=== PATIENT | female | born 1965 | race Caucasian/White ===

== ENCOUNTER 2017-06-05 01:08 | Inpatient (IN) | payer BC ==
[2017-06-05 01:44] LABS: Basophils % (A) 0 %; CH 31.7; CHCM 34.5; Eosinophils # (A) 0.1 k/uL (0-0.7); Eosinophils % (A) 2 %; HCT 43.6 % (34.0-46.0); HDW 2.67; HGB 15.2 gm/dL (11.4-16.0); Luc # (Auto) 0.17; Luc % (Auto) 2; Lymphocytes # (A) 2.1 k/uL (1.0-4.8); Lymphocytes % (A) 27 %; MCH 32.2 pg (25.0-35.0); MCV 92.2 fL (80.0-100.0); Mean Platelet Volume 7.4; Monocytes # (A) 0.3 k/uL (0-1.0); Monocytes % (A) 5 %; Neutrophils # (A) 4.8 k/uL (1.3-7.7); Neutrophils % (A) 64 %; RBC 4.73 m/uL (3.80-5.40); RDW 13.6 % (11.5-15.5); WBC 7.6 k/uL (3.8-10.6); WBC (Perox) 7.79
[2017-06-05 01:53] LABS: ALT 28 U/L (9-52); AST 18 U/L (14-36); Alkaline Phosphatase 115 U/L (38-126); Amylase 65 U/L (30-110); Anion Gap 12 mmol/L; Blood Urea Nitrogen 17 mg/dL (7-17); Calcium 9.9 mg/dL (8.4-10.2); Carbon Dioxide 22 mmol/L (22-30); Chloride 108 mmol/L (98-107); Glucose 105 mg/dL (74-99); Non-African American GFR(MDRD) >60 (>60 ml/min/1.73 sqM); Potassium 4.6 mmol/L (3.5-5.1); Sodium 142 mmol/L (137-145); Total Bilirubin 0.6 mg/dL (0.2-1.3); Total Protein 7.7 g/dL (6.3-8.2)
[2017-06-05] MEDS ORDERED: SODIUM CHLORIDE 0.9% 1,000 ML IV ONE (02:23)
[2017-06-05] MEDS ORDERED: HYDROmorphone 1 MG/ML 1 ML SYRINGE IVP STA (02:24)
--- NOTE | 2017-06-05 02:26 | ED ---
Abdominal Pain HPI - General Chief Complaint: Abdominal Pain Stated Complaint: back pain Time Seen by Provider: 06/05/17 01:25 Source: patient, family, RN notes reviewed Mode of arrival: ambulatory Limitations: no limitations - History of Present Illness Initial Comments: Patient is a 51-year-old female presents to the emergency room for evaluation of abdominal and back pain. Patient states pain began around 2 PM yesterday. Patient states pain has been worsening throughout the day. Patient states having right lower quadrant pain is radiating into her back. Patient states the pain is worse with movement. Patient states never had pain like this before. Patient states she has a history of section and ectopic . Patient denies nausea or vomiting. Patient denies fevers or chills. Patient states she is having 10 out of 10 pain. Patient denies trouble urinating. Patient denies history of kidney stones. Patient any pain or burning during urination. Patient denies constipation or diarrhea. - Related Data Home Medications Medication Instructions Recorded Confirmed No Known Home Medications [No 06/05/17 06/05/17 Known Home Medications] Allergies Allergy/AdvReac Type Severity Reaction Status Date / Time codeine Allergy Unknown Verified 06/05/17 01:14 Review of Systems ROS Statement: Those systems with pertinent positive or pertinent negative responses have been documented in the HPI. ROS Other: All systems not noted in ROS Statement are negative. Past Medical History Additional Past Medical History / Comment(s): Hep C History of Any Multi-Drug Resistant Organisms: None Reported Past Surgical History: Section, Tonsillectomy Additional Past Surgical History / Comment(s): ectopic preg, ENT Past Psychological History: No Psychological Hx Reported Smoking Status: Never smoker Past Alcohol Use History: None Reported Past Drug Use History: None Reported General Exam - General Exam Comments Initial Comments: laying in exam room, comfortable secondary to discomfort Limitations: no limitations General appearance: alert, in no apparent distress Head exam: Present: atraumatic, normocephalic, normal inspection ENT exam: Present: normal exam Neck exam: Present: normal inspection Respiratory exam: Present: normal lung sounds bilaterally. Absent: respiratory distress Cardiovascular Exam: Present: regular rate, normal rhythm, normal heart sounds GI/Abdominal exam: Present: soft, tenderness (RLQ), normal bowel sounds. Absent : distended, guarding, rebound, rigid Extremities exam: Present: normal inspection Back exam: Present: normal inspection Neurological exam: Present: alert, oriented X3, CN II-XII intact Psychiatric exam: Present: normal affect, normal mood Skin exam: Present: warm, dry, intact, normal color. Absent: rash Course Vital Signs 06/05/17 06/05/17 01:11 03:00 Temperature 97 F L 97.6 F Pulse Rate 100 82 Respiratory 22 18 Rate Blood Pressure 132/84 124/63 O2 Sat by Pulse 98 Oximetry Medical Decision Making - Medical Decision Making patient is a 51-year-old female presents to the emergency room for evaluation of abdominal pain. Labs show no concerning findings. Patient is afebrile. Abdomen/pelvis computed tomography scan positive for acute appendicitis. Case discussed with on-call surgeon, Dr. Raymundo. Patient will be started on Zosyn and scheduled for appendectomy later today. - Lab Data Result diagrams: 06/05/17 01:30 06/05/17 01:30 Lab Results 06/05/17 06/05/17 06/05/17 Range/Units 01:30 01:30 03:30 WBC 7.6 (3.8-10.6) k/uL RBC 4.73 (3.80-5.40) m/uL Hgb 15.2 (11.4-16.0) gm/dL Hct 43.6 (34.0-46.0) % MCV 92.2 (80.0-100.0) fL MCH 32.2 (25.0-35.0) pg MCHC 35.0 (31.0-37.0) g/dL RDW 13.6 (11.5-15.5) % Plt Count 259 (150-450) k/uL Neutrophils % 64 % Lymphocytes % 27 % Monocytes % 5 % Eosinophils % 2 % Basophils % 0 % Neutrophils # 4.8 (1.3-7.7) k/uL Lymphocytes # 2.1 (1.0-4.8) k/uL Monocytes # 0.3 (0-1.0) k/uL Eosinophils # 0.1 (0-0.7) k/uL Basophils # 0.0 (0-0.2) k/uL Sodium 142 (137-145) mmol/L Potassium 4.6 (3.5-5.1) mmol/L Chloride 108 H (98-107) mmol/L Carbon Dioxide 22 (22-30) mmol/L Anion Gap 12 mmol/L BUN 17 (7-17) mg/dL Creatinine 0.80 (0.52-1.04) mg/dL Est GFR (MDRD) Af Amer >60 (>60 ml/min/1.73 sqM) Est GFR (MDRD) Non-Af >60 (>60 ml/min/1.73 sqM) Glucose 105 H (74-99) mg/dL Calcium 9.9 (8.4-10.2) mg/dL Total Bilirubin 0.6 (0.2-1.3) mg/dL AST 18 (14-36) U/L ALT 28 (9-52) U/L Alkaline Phosphatase 115 (38-126) U/L Total Protein 7.7 (6.3-8.2) g/dL Albumin 4.5 (3.5-5.0) g/dL Amylase 65 (30-110) U/L Lipase 93 (23-300) U/L Urine Color Light Yellow Urine Appearance Clear (Clear) Urine pH 6.0 (5.0-8.0) Ur Specific [place] 1.012 (1.001-1.035) Urine Protein Negative (Negative) Urine Glucose (UA) Negative (Negative) Urine Ketones Negative (Negative) Urine Blood Negative (Negative) Urine Nitrite Negative (Negative) Urine Bilirubin Negative (Negative) Urine Urobilinogen <2.0 (<2.0) mg/dL Ur Leukocyte Esterase Negative (Negative) Ur Squamous Epith Cells <1 (0-4) /hpf Urine Mucus Rare H (None) /hpf - Radiology Data Radiology results: report reviewed, image reviewed Disposition Clinical Impression: Acute appendicitis Disposition: ADMITTED IP TO THIS [facility] Condition: Stable Referrals: Erin Grider MD [Primary Care Provider] - 1-2 days Decision Date: 06/05/17
[2017-06-05 04:01] LABS: Appearance,Urine Clear (Clear); Bilirubin,Urine Negative (Negative); Glucose,Urine (UA) Negative (Negative); Ketones,Urine Negative (Negative); Leukocyte Esterase,Urine Negative (Negative); Mucus,Urine Rare /hpf; Nitrite,Urine Negative (Negative); Particle Count 668; Protein,Urine Negative (Negative); Specific Gravity,Urine 1.012 (1.001-1.035); Squamous Epithelial Cell,Urine <1 /hpf (0-4); UA Billing (MACRO vs. MICRO) CHEM; Urobilinogen,Urine <2.0 mg/dL (<2.0)
[2017-06-05] MEDS ORDERED: RX INFO: IV CONTRAST WAS GIVEN 1 EACH MISC MISCELLANE PRN (04:13)
--- NOTE | 2017-06-05 05:30 | CT ---
Exam: CT ABDOMEN + PELVIS With Contrast History: Right lower quadrant pain. Right flank pain. Comparison: None provided. Technique: Continuous axial images of the abdomen and pelvis are obtained after administration of intravenous contrast. Coronal and sagittal reformatting was provided. Findings: The gallbladder, spleen, pancreas, adrenal glands, and kidneys show no substantial abnormality. There is fatty infiltration of the liver. No dilated loops of bowel to suggest obstruction. No evidence for diverticulitis. The appendix measures approximately 9 mm in caliber. There is periappendiceal edema. No acute aortic abnormality. No lymphadenopathy. The urinary bladder and uterus show no substantial abnormality. Question trace free fluid in the pelvis. No aggressive appearing osseous process. Impression: Appendicitis. Hepatic steatosis. DLP = 2126.60 mGycm One or more of the following dose reduction techniques were used: automated exposure control, adjustment of the mA and/or kV according to patient size, use of iterative reconstruction technique. [employer] 06/05/17 05:27 Call Doctor Regarding Appendicitis, called Dr. Peace on 06/05 05:26 (-04:00)
[2017-06-05] MEDS ORDERED: PIPERACILLIN-TAZOBACTAM 3.375 GM in DEXTROSE/WATER 1 50ML.BAG IVPB STA (05:32)
[2017-06-05] MEDS ORDERED: ONDANSETRON 4 MG/2 ML VIAL IVP PRN (05:32)
[2017-06-05] MEDS ORDERED: NALOXONE 0.4 MG/ML 1 ML VIAL IV PRN (05:32)
[2017-06-05] MEDS: SODIUM CHLORIDE 0.9% 1,000 ML IV SCH ×2 (05:53→16:10)
[2017-06-05] MEDS: HYDROmorphone 1 MG/ML 1 ML SYRINGE IV PRN ×3 (07:00→21:04)
--- NOTE | 2017-06-05 11:19 | P.GSHP ---
History of Present Illness H&P Date: 06/05/17 Chief Complaint: Right lower abdominal pain 51-year-old female who presented on the day of admission to the emergency room to be evaluated for chief complaint of developing earlier in the day right lower quadrant abdominal pain radiating to the back. Patient stated it became more symptomatic. Did vomit once. Patient stated the pain was in the right lower quadrant of the abdomen radiating into the back worse with any movement. Patient stated she had not experienced this kind of pain in the past patient stated the pain continued to persist throughout the day came into the emergency room to be evaluated for the above-mentioned symptoms. Patient denied any fever chills. Patient did have a CAT scan of the abdomen pelvis in the emergency room was positive for acute appendicitis. The case was discussed with the on-call surgeon Dr. Raymundo. Patient has been started on Zosyn and is scheduled for an appendectomy today Patient's past surgical history with an ectopic . Patient states her last colonoscopy was in March 2017 no acute findings. Additionally the patient stated she underwent an EGD at that time in March 2017 as part of a workup for esophageal reflux symptoms. Patient states the endoscopic were unremarkable. Patient gives no history of having kidney stones. Patient denied any burning with urination. Denied a change in bowel habits had not been experiencing any constipation or diarrhea. Patient takes no home prescriptions and is on no [id number] meds Patient is able to verbalize an understanding of the plan of care question answered - Review of Systems Comment: Essentially unremarkable except as mentioned in the present illness Past Medical History Past Medical History: Hyperlipidemia, Hypertension, Liver Disease Additional Past Medical History / Comment(s): Hep C-treated in 2001 and in remission, past hx of HTN/hyperlipidemia but improved and taken off RXs, ectopic with surgery. History of Any Multi-Drug Resistant Organisms: None Reported Past Surgical History: Section, Tonsillectomy Additional Past Surgical History / Comment(s): L oophorectomy Past Anesthesia/Blood Transfusion Reactions: No Reported Reaction Smoking Status: Former smoker - Past Family History Father Family Medical History: Coronary Artery Disease (CAD), Myocardial Infarction (ME ) Additional Family Medical History / Comment(s): Father has had 2 MIs and is 73 yrs old. Mother History Unknown: Yes Medications and Allergies Home Medications Medication Instructions Recorded Confirmed Type No Known Home Medications [No 06/05/17 06/05/17 History Known Home Medications] Allergies Allergy/AdvReac Type Severity Reaction Status Date / Time codeine Allergy Unknown Verified 06/05/17 08:08 Surgical - Exam Vital Signs Temp Pulse Resp BP Pulse Ox 97 F L 100 22 132/84 98 06/05/17 01:11 06/05/17 01:11 06/05/17 01:11 06/05/17 01:11 06/05/17 01:11 GENERAL APPEARANCE: Pleasant 51-year-old female patient is alert, oriented, in no acute distress. VITAL SIGNS: Reviewed HEENT: Head is normocephalic and atraumatic. Pupils are equal and reactive. The nares are patent. Oropharynx is clear without lesions. NECK: Supple without lymphadenopathy. Traches midline. HEART: S1, S2. Regular rate and rhythm. No murmur noted denying chest pain LUNGS: No crackles or wheezes are heard. Adequate air movement bilaterally on room air sats are 98% no cough ABDOMEN: Soft obese, slight tenderness to the right lower quadrant, nondistended with good bowel sounds. No peritoneal signs. No palpable organomegaly or masses. EXTREMITIES: Normal skin color and turgor. No cyanosis, rash, ulceration, clubbing or edema. Radial pedal pulses are 2/4 bilaterally. NEUROLOGICAL: No focal deficits. Strength and sensation are grossly intact. Results - Labs 06/05/17 01:30 06/05/17 01:30 Abnormal Lab Results - Last 24 Hours (Table) 06/05/17 06/05/17 Range/Units 01:30 03:30 Chloride 108 H (98-107) mmol/L Glucose 105 H (74-99) mg/dL Urine Mucus Rare H (None) /hpf Diabetes panel 06/05/17 Range/Units 01:30 Sodium 142 (137-145) mmol/L Potassium 4.6 (3.5-5.1) mmol/L Chloride 108 H (98-107) mmol/L Carbon Dioxide 22 (22-30) mmol/L BUN 17 (7-17) mg/dL Creatinine 0.80 (0.52-1.04) mg/dL Glucose 105 H (74-99) mg/dL Calcium 9.9 (8.4-10.2) mg/dL AST 18 (14-36) U/L ALT 28 (9-52) U/L Alkaline Phosphatase 115 (38-126) U/L Total Protein 7.7 (6.3-8.2) g/dL Albumin 4.5 (3.5-5.0) g/dL Calcium panel 06/05/17 Range/Units 01:30 Calcium 9.9 (8.4-10.2) mg/dL Albumin 4.5 (3.5-5.0) g/dL Pituitary panel 06/05/17 Range/Units 01:30 Sodium 142 (137-145) mmol/L Potassium 4.6 (3.5-5.1) mmol/L Chloride 108 H (98-107) mmol/L Carbon Dioxide 22 (22-30) mmol/L BUN 17 (7-17) mg/dL Creatinine 0.80 (0.52-1.04) mg/dL Glucose 105 H (74-99) mg/dL Calcium 9.9 (8.4-10.2) mg/dL Adrenal panel 06/05/17 Range/Units 01:30 Sodium 142 (137-145) mmol/L Potassium 4.6 (3.5-5.1) mmol/L Chloride 108 H (98-107) mmol/L Carbon Dioxide 22 (22-30) mmol/L BUN 17 (7-17) mg/dL Creatinine 0.80 (0.52-1.04) mg/dL Glucose 105 H (74-99) mg/dL Calcium 9.9 (8.4-10.2) mg/dL Total Bilirubin 0.6 (0.2-1.3) mg/dL AST 18 (14-36) U/L ALT 28 (9-52) U/L Alkaline Phosphatase 115 (38-126) U/L Total Protein 7.7 (6.3-8.2) g/dL Albumin 4.5 (3.5-5.0) g/dL Assessment and Plan Plan: Impression Present on admission right lower quadrant pain suspect due to an acute appendicitis CAT scan abdomen and pelvis positive for acute appendicitis History of hep C in remission on no medication or treatment Computed tomography scan abdomen and pelvis fatty infiltration of the liver Colonoscopy and EGD in March 2017 no acute findings Plan Nothing by mouth for scheduled appendectomy laparoscopic possible open Pain control IV fluid 100 and hour Further recommendations pending The above impression and plan of care have been discussed and directed by signing physician. Camilla Tavares nurse practitioner acting as scribe for signing physician.
[2017-06-05] MEDS ORDERED: IV FLUID CONTINUATION 1,000 ML IV ONE (12:17)
[2017-06-05] MEDS ORDERED: HEPARIN SODIUM,PORCINE 5,000 UNIT/ML 1 ML VIAL SQ STA (12:36)
--- NOTE | 2017-06-05 12:36 | P.HPADDEND ---
H&P Addendum H&P Addendum Date: 06/05/17 Patient has appendicitis. Recommend appendectomy. Questions and answers were reviewed.
[2017-06-05] MEDS ORDERED: ceFAZolin 2 GM in SODIUM CHLORIDE 0.9% 100 ML IVPB STA (12:37)
[2017-06-05] MEDS ORDERED: NEOSTIGMINE 1 MG/ML 10 ML VIAL ONE (13:08)
[2017-06-05] MEDS ORDERED: fentaNYL (PF) 50 MCG/ML 2 ML AMP ONE (13:08)
[2017-06-05] MEDS ORDERED: LIDOCAINE 1% INJ 10MG/ML (20 ML MDV) ONE (13:08)
[2017-06-05] MEDS ORDERED: MIDAZOLAM 2 MG/2 ML VIAL ONE (13:08)
[2017-06-05] MEDS ORDERED: SUCCINYLCHOLINE CHLORIDE 100 MG/5 ML SYR IV ONE (13:08)
[2017-06-05] MEDS ORDERED: PROPOFOL 10 MG/ML 20 ML VIAL IV ONE (13:08)
[2017-06-05] MEDS ORDERED: ROCURONIUM BROMIDE 10 MG/ML 10 ML VIAL IV ONE (13:08)
[2017-06-05] MEDS ORDERED: KETOROLAC 30 MG/ML 1 ML VIAL ONE (13:08)
[2017-06-05] MEDS ORDERED: GLYCOPYRROLATE 0.2 MG/ML 2 ML VIAL ONE (13:08)
[2017-06-05] MEDS ORDERED: BUPIVACAIN-EPI 0.5%-1:200,000 30 ML VIAL SQ ONE ×2 (13:31→14:31)
[2017-06-05] MEDS ORDERED: LACTATED RINGERS 1,000 ML IV ONE ×2 (13:50)
[2017-06-05] MEDS ORDERED: HYDROcodone/APAP 5-325MG 1 EACH TAB PO PRN (14:44)
[2017-06-05] MEDS ORDERED: METOCLOPRAMIDE 5 MG/ML 2 ML VIAL IVP PRN (14:44)
--- NOTE | 2017-06-05 14:44 | P.OP ---
Date of Procedure: 06/05/17 Preoperative Diagnosis: Postoperative Diagnosis: Procedure(s) Performed: Implants: Indications for Procedure: Operative Findings: Description of Procedure: SURGEON: DEYSI NICOLAS MD SEWER CONNECTOR: None. PREOPERATIVE DIAGNOSES: 1. Right lower quadrant abdominal pain. 2. Acute appendicitis. 3. Leukocytosis. 4. Morbid obesity due to excess calories. 5. BMI 43.9. POSTOPERATIVE DIAGNOSES: 1. Right lower quadrant abdominal pain. 2. Acute appendicitis. 3. Leukocytosis. 4. Morbid obesity due to excess calories. 5. BMI 43.9. 6. Retrocecal appendicitis ascending to the gallbladder without rupture. 7. Severe abdominal adhesions greater omentum to abdominal wall from previous C -section. PROCEDURES PERFORMED: 1. Diagnostic laparoscopy. 2. Laparoscopic lysis of adhesions over 30 minutes. 3. Laparoscopic appendectomy. ANESTHESIA: General with 30 mL 0.25% Marcaine with epinephrine. ESTIMATED BLOOD LOSS: 20 mL. SPECIMENS REMOVED: Appendix. COMPLICATIONS: None. OPERATIVE FINDINGS: 1. Acute appendicitis, retrocecal, ascending to the gallbladder involving the tip without rupture. 2. Unremarkable small bowel and terminal ileum. 3. Severe lower abdominal adhesions involving the lower pelvis adding complexity to her case. INDICATIONS: The patient is a 51-year-old female who presents with less than a 24-hour history of right lower quadrant abdominal pain. She reported nausea, including anorexia. CT of the abdomen and pelvis was obtained demonstrating findings consistent with acute appendicitis. Benefits and risks, including possibility of open technique were described at length. Informed consent was obtained. DESCRIPTION OR PROCEDURE: Patient was brought to the operating room, laid in supine position. After general induction, the abdomen was prepped and draped in standard sterile fashion. Prior to incision, a timeout protocol was confirmed with surgical team regarding patient's name including procedure to be performed. Preoperative medications was given intraoperatively. Additionally, bilateral SCDs including heparin 5000 units was administered. A left upper quadrant 0 5-mm laparoscopic trocar entry was performed. The abdomen was insufflated to 15 mmHg pressure she tolerated well. Diagnostic laparoscopy demonstrated no injury to bowel, viscera or mesentery. Severe lower abdominal adhesions involving the greater omentum to the abdominal wall was identified adding complexity to her case. A transverse infraumbilical incision was made after localizing the skin with anesthetic. A 12 mm trocar entry was performed. Laparoscopic adhesional lysis involving Sonicision was performed for over 30 minutes without injury to intestine.. A 5 mm port was placed just above the pubis. A separate 5 mm port was placed at the right lower quadrant all under direct visualization. The patient was placed in Trendelenburg position with the right side up. A systematic view within the abdominal cavity was started with the small bowel which was unremarkable. The uterus was unremarkable. The gallbladder was unremarkable. The base of the cecum was without inflammation. The appendix was retrocecal and embedded within the mesenteric fat of the ascending colon towards the gallbladder. The tip of the appendix was dilated without perforation. Careful extensive adhesional lysis was performed to free the appendix from the mesentery. A 45 mm Endo LISANDRO echelon stapler was fired across using a jones vascular load. The staple line was completely hemostatic. The specimen was removed from the abdominal cavity with an Endo Catch bag through the 12 mm trocar. Hemostasis was checked. All instruments and pneumoperitoneum were evacuated from the abdominal cavity. The fascial defect was reapproximated using 0 Vicryl in a figure-of-8 fashion. A total of 30 mL 0.25% Marcaine with epinephrine was infiltrated in all wounds for postop analgesia. Dermabond was applied to the skin after reapproximating the incisions with 4-0 Monocryl as described. At the end of the procedure, needle, sponge, and instrument count was verified correct by surgical garment assembler. The patient had tolerated the procedure well, was taken to the postanesthesia care unit in stable condition. Intraoperative abdominal films were described and discussed with her family.
[2017-06-05] MEDS: HYDROmorphone 1 MG/ML 1 ML SYRINGE IVP ONE ×2 (15:17→15:39)
[2017-06-05] MEDS: KETOROLAC 30 MG/ML 1 ML VIAL IVP SCH ×3 (15:44→23:52)
[2017-06-05] MEDS: ACETAMINOPHEN TAB 325 MG TAB PO SCH ×2 (18:43→23:53)
[2017-06-06] MEDS: SODIUM CHLORIDE 0.9% 1,000 ML IV SCH ×2 (03:09→11:10)
[2017-06-06] MEDS: KETOROLAC 30 MG/ML 1 ML VIAL IVP SCH ×2 (06:23→11:10)
[2017-06-06] MEDS: ACETAMINOPHEN TAB 325 MG TAB PO SCH ×2 (06:24→11:05)
[2017-06-06 07:23] VITALS: BP 148/74; PULSE 65; RESP 18; TEMP 97.6
[2017-06-06] MEDS: HYDROmorphone 1 MG/ML 1 ML SYRINGE IV PRN (08:26)
[2017-06-06 08:34] LABS: Basophils % (A) 0 %; CHCM 33.2; Eosinophils # (A) 0.1 k/uL (0-0.7); Eosinophils % (A) 1 %; HCT 39.5 % (34.0-46.0); HDW 2.69; HGB 13.4 gm/dL (11.4-16.0); Luc # (Auto) 0.07; Luc % (Auto) 1; Lymphocytes % (A) 19 %; MCV 94.1 fL (80.0-100.0); Mean Platelet Volume 7.7; Monocytes # (A) 0.3 k/uL (0-1.0); Monocytes % (A) 6 %; Neutrophils % (A) 73 %; RDW 13.5 % (11.5-15.5); WBC 5.5 k/uL (3.8-10.6)
[2017-06-06 08:46] LABS: Anion Gap 9 mmol/L; Blood Urea Nitrogen 9 mg/dL (7-17); Calcium 8.8 mg/dL (8.4-10.2); Carbon Dioxide 26 mmol/L (22-30); Chloride 107 mmol/L (98-107); Glucose 87 mg/dL (74-99); Magnesium 2.1 mg/dL (1.6-2.3); Non-African American GFR(MDRD) >60 (>60 ml/min/1.73 sqM); Potassium 4.1 mmol/L (3.5-5.1); Sodium 142 mmol/L (137-145)
--- NOTE | 2017-06-06 12:51 | P.DS ---
Providers Date of admission: 06/05/17 06:14 Expected date of discharge: 06/06/17 Attending physician: Sandy Raymundo [facility]: 51-year-old female who presented on the day of admission to the emergency room to be evaluated for chief complaint of developing earlier in the day right lower quadrant abdominal pain radiating to the back. Patient stated it became more symptomatic. Did vomit once. Patient stated the pain was in the right lower quadrant of the abdomen radiating into the back worse with any movement. Patient stated she had not experienced this kind of pain in the past patient stated the pain continued to persist throughout the day came into the emergency room to be evaluated for the above-mentioned symptoms. Patient denied any fever chills. Patient did have a CAT scan of the abdomen pelvis in the emergency room was positive for acute appendicitis. The case was discussed with the on-call surgeon Dr. Raymundo. Patient has been started on Zosyn and is scheduled for an appendectomy today Patient's past surgical history with an ectopic . Patient states her last colonoscopy was in March 2017 no acute findings. Additionally the patient stated she underwent an EGD at that time in March 2017 as part of a workup for esophageal reflux symptoms. Patient states the endoscopic were unremarkable. Patient gives no history of having kidney stones. Patient denied any burning with urination. Denied a change in bowel habits had not been experiencing any constipation or diarrhea. Patient takes no home prescriptions and is on no [id number] meds Impression discharge diagnosis Present on admission right lower quadrant abdominal pain suspect due to acute appendicitis Morbid obesity due to excessive calories BMI 43.9 Leukocytosis suspect due to acute appendicitis Retrocecal appendicitis ascending to the gallbladder without rupture. Severe abdominal adhesions greater omentum to abdominal wall from previous C- section. Postop 05 June diagnostic laparoscopically, laparoscopic lysis of adhesions, laparoscopic appendectomy Present on admission right lower quadrant abdominal pain suspect due to an acute appendicitis per CAT scan abdomen and pelvis positive The above impression and plan of care have been discussed and directed by signing physician. Camilla Tavares nurse practitioner acting as scribe for signing physician. Patient Condition at Discharge: Stable Plan - Discharge Summary New Discharge Prescriptions: New Ibuprofen [Motrin] 600 mg PO Q8HR PRN #30 tab PRN Reason: Pain Acetaminophen Tab [Tylenol] 650 mg PO Q6HR tab Discharge Medication List Acetaminophen Tab [Tylenol] 650 mg PO Q6HR tab 06/06/17 [Rx] Ibuprofen [Motrin] 600 mg PO Q8HR PRN #30 tab 06/06/17 [Rx] Follow up Appointment(s)/Referral(s): Erin Grider MD [Primary Care Provider] - 1-2 days Sandy Raymundo MD [STAFF PHYSICIAN] - 06/10/17 Patient Instructions/Handouts: Laparoscopic Appendectomy (DC) Activity/Diet/Wound Care/Special Instructions: May shower. No bath tub soak. No lifting over 4 pounds in 2 weeks. Discharge Disposition: HOME SELF-CARE
== END 2017-06-06 13:35 | disposition home or self-care (01) | DRG 342 ==
LOC: EC 01:08 → 4MS4W 06:14 → MERGE 06:14
PROVIDERS: ADMIT Surgery Plastic and Reconstructive Surgery; ATTEND Surgery Plastic and Reconstructive Surgery
PROC: 0DTJ4ZZ Resection of Appendix, Percutaneous Endoscopic Approach (ICD-10-PCS; principal; 2017-06-05 07:30)
DX: K35.80 Unspecified acute appendicitis (principal); Z68.41 Body mass index [BMI] 40.0-44.9, adult; K76.0 Fatty (change of) liver, not elsewhere classified; E66.01 Morbid (severe) obesity due to excess calories; I10 Essential (primary) hypertension; E78.5 Hyperlipidemia, unspecified; K66.0 Peritoneal adhesions (postprocedural) (postinfection); B19.20 Unspecified viral hepatitis C without hepatic coma; Z87.891 Personal history of nicotine dependence; Z88.5 Allergy status to narcotic agent; Z82.49 Family history of ischemic heart disease and other diseases of the circulatory system
CPT/HCPCS: 36415; 74177; 80048; 80053; 81003; 82150; 83690; 83735; 85025; 88304; 96361; 96365; 96375; 99285

== ENCOUNTER 2018-06-14 10:14 | Inpatient (IN) | payer BC ==
[2018-06-14] MEDS ORDERED: ACETAMINOPHEN TAB 500 MG TAB PO STA (10:40)
--- NOTE | 2018-06-14 10:40 | ED ---
General Adult HPI - General Chief complaint: Fever Stated complaint: Poss dehydration/vomiting Time Seen by Provider: 06/14/18 10:25 Source: patient Mode of arrival: ambulatory Limitations: no limitations - History of Present Illness Initial comments: Cleve Cohen is a previously healthy 52-year-old female who presents the ED today for evaluation of fevers, chills, nausea, vomiting or for dehydration. Patient reports that she was in her usual state of health earlier this week, she was able to attend fitness classes at the gym on Friday and again on Friday. She reports that Friday she left work early because she wasn't feeling well and went home and slept for 12 hours. On she states that she went to work but was feeling very unwell, she had episodes of chills and rigors followed by nausea and vomiting. She states these episodes have occurred intermittently throughout that on Friday and Friday as well. She states that yesterday she had an episode of shaking chills so severe that she had an episode of urinary incontinence. She states that when she has these episodes they last for 1-2 hours and there is nothing that can make her feel warm, after the chills and rigors. She tends to feel very hot and sweaty. Patient states that she was evaluated at an urgent care yesterday and advised that she is likely suffering from a viral illness, however her symptoms were worse last night than they had been throughout the week and she became concerned that she has not been able to eat or drink and off for the past 3 days. She states that she is concerned she may be becoming dehydrated. She states that while she's having the shaking chill she does feel like she cannot breathe because she is shaking so hard. She denies any chest pain, exertional dyspnea, any history of cardiac or pulmonary disease. Has no history of DVT or PE. She states that she does not currently take any medications aside from occasional ibuprofen. - Related Data Previous Rx's Medication Instructions Recorded Ondansetron [Zofran ODT] 4 mg PO Q8HR PRN #10 tab 10/12/14 traMADol HCl [Ultram] 50 mg PO Q4H PRN #20 tab 10/12/14 Acetaminophen Tab [Tylenol] 650 mg PO Q6HR tab 06/06/17 Ibuprofen [Motrin] 600 mg PO Q8HR PRN #30 tab 06/06/17 Allergies Allergy/AdvReac Type Severity Reaction Status Date / Time codeine Allergy Unknown Verified 06/14/18 10:23 Review of Systems ROS Statement: Those systems with pertinent positive or pertinent negative responses have been documented in the HPI. ROS Other: All systems not noted in ROS Statement are negative. Constitutional: Reports: fever, chills Eyes: Denies: eye pain, eye discharge ENT: Reports: ear pain (right ear, occasionally) Respiratory: Reports: dyspnea (while having shaking chills). Denies: cough, wheezes Cardiovascular: Denies: chest pain, palpitations, dyspnea on exertion, orthopnea , edema, syncope Endocrine: Reports: fatigue Gastrointestinal: Reports: nausea, vomiting, diarrhea (one episode on ) . Denies: abdominal pain Genitourinary: Denies: urgency, dysuria, frequency Musculoskeletal: Denies: back pain Skin: Denies: rash, change in color Neurological: Reports: headache Hematological/Lymphatic: Denies: easy bleeding, easy bruising Past Medical History Past Medical History: Hyperlipidemia, Hypertension, Liver Disease Additional Past Medical History / Comment(s): Hep C-treated in 2001 and in remission, past hx of HTN/hyperlipidemia but improved and taken off RXs, ectopic with surgery. History of Any Multi-Drug Resistant Organisms: None Reported Past Surgical History: Appendectomy, Section, Tonsillectomy Additional Past Surgical History / Comment(s): L oophorectomy Past Anesthesia/Blood Transfusion Reactions: No Reported Reaction Past Psychological History: No Psychological Hx Reported Smoking Status: Former smoker Past Alcohol Use History: None Reported Past Drug Use History: None Reported - Past Family History Father Family Medical History: Coronary Artery Disease (CAD), Myocardial Infarction ([place] ) Additional Family Medical History / Comment(s): Father has had 2 MIs and is 73 yrs old. Mother History Unknown: Yes General Exam Limitations: no limitations General appearance: alert Head exam: Present: atraumatic, normocephalic Eye exam: Present: PERRL ENT exam: Present: mucous membranes dry, other (mucous membranes dry, red due to drinking red colored drink) Neck exam: Present: normal inspection. Absent: lymphadenopathy Respiratory exam: Present: normal lung sounds bilaterally. Absent: respiratory distress Cardiovascular Exam: Present: normal rhythm, tachycardia. Absent: systolic murmur, diastolic murmur GI/Abdominal exam: Present: soft, normal bowel sounds. Absent: distended, tenderness, guarding, rebound, rigid Rectal exam: Present: deferred Extremities exam: Present: normal inspection, normal capillary refill Neurological exam: Present: alert, oriented X3 Psychiatric exam: Present: normal affect, normal mood Skin exam: Present: warm. Absent: cyanosis, petechiae, pallor, mottled Course Vital Signs 06/14/18 06/14/18 06/14/18 10:19 11:20 13:07 Temperature 98.4 F 101.3 F H 98.7 F Pulse Rate 112 H 96 69 Respiratory 22 18 16 Rate Blood Pressure 106/64 121/58 114/55 O2 Sat by Pulse 96 96 99 Oximetry 06/14/18 14:49 Temperature Pulse Rate 68 Respiratory 18 Rate Blood Pressure 124/79 O2 Sat by Pulse 98 Oximetry EKG Findings - EKG Comments: EKG Findings:: EKG at 11:22 AM - rate is 98, rhythm is sinus, normal axis, normal intervals, no acute ST elevations have T-wave inversions in lead 3. No evidence of acute ischemia or infarction. Medical Decision Making - Medical Decision Making The patient was seen and evaluated, history was obtained from the patient as well as her at bedside History and physical exam are concerning for dehydration, patient noted to have a fever of 102 at home, is tachycardic here Sepsis workup was initiated, no empiric antibiotics were ordered initially as there is no obvious source Urinalysis reveals a urinary tract infection, Rocephin was ordered Labs reveal leukocytosis with neutrophilia, normal kidney function Troponin and d-dimer were noted to be elevated, high dose heparin was ordered as well as CT pulmonary embolism study CT reveals no acute pulmonary embolism however patient will remain on heparin due to elevated troponin. Likely a type II in STEMI secondary to sepsis. Patient care was discussed with Dr. Myrick who agrees with treatment plan and requests that cardiology be consult at upon admission for sepsis secondary to pyelonephritis and NSTEMI. - Lab Data Result diagrams: 06/14/18 11:24 06/14/18 11:24 Lab Results 06/14/18 06/14/18 06/14/18 Range/Units 11:09 11:24 11:24 WBC (3.8-10.6) k/uL RBC (3.80-5.40) m/uL Hgb (11.4-16.0) gm/dL Hct (34.0-46.0) % MCV (80.0-100.0) fL MCH (25.0-35.0) pg MCHC (31.0-37.0) g/dL RDW (11.5-15.5) % Plt Count (150-450) k/uL Neutrophils % % Lymphocytes % % Monocytes % % Eosinophils % % Basophils % % Neutrophils # (1.3-7.7) k/uL Lymphocytes # (1.0-4.8) k/uL Monocytes # (0-1.0) k/uL Eosinophils # (0-0.7) k/uL Basophils # (0-0.2) k/uL PT 10.9 (9.0-12.0) sec INR 1.1 (<1.2) APTT 25.2 (22.0-30.0) sec D-Dimer 6.20 H (<0.60) mg/L FEU Sodium (137-145) mmol/L Potassium (3.5-5.1) mmol/L Chloride (98-107) mmol/L Carbon Dioxide (22-30) mmol/L Anion Gap mmol/L BUN (7-17) mg/dL Creatinine (0.52-1.04) mg/dL Est GFR (CKD-EPI)AfAm (>60 ml/min/1.73 sqM) Est GFR (CKD-EPI)NonAf (>60 ml/min/1.73 sqM) Glucose (74-99) mg/dL Plasma Lactic Acid Danie (0.7-2.0) mmol/L Calcium (8.4-10.2) mg/dL Total Bilirubin (0.2-1.3) mg/dL AST (14-36) U/L ALT (9-52) U/L Alkaline Phosphatase (38-126) U/L Troponin I 0.221 H* (0.000-0.034) ng/mL Total Protein (6.3-8.2) g/dL Albumin (3.5-5.0) g/dL Urine Color Yellow Urine Appearance Cloudy H (Clear) Urine pH 6.0 (5.0-8.0) Ur Specific [place] 1.010 (1.001-1.035) Urine Protein 1+ H (Negative) Urine Glucose (UA) Negative (Negative) Urine Ketones Negative (Negative) Urine Blood Moderate H (Negative) Urine Nitrite Negative (Negative) Urine Bilirubin Negative (Negative) Urine Urobilinogen 4.0 (<2.0) mg/dL Ur Leukocyte Esterase Large H (Negative) Urine WBC 138 H (0-5) /hpf Urine WBC Clumps Few H (None) /hpf Ur Squamous Epith Cells 2 (0-4) /hpf Urine Bacteria Rare H (None) /hpf Urine Mucus Rare H (None) /hpf 06/14/18 06/14/18 06/14/18 Range/Units 11:24 11:24 11:24 WBC 13.3 H (3.8-10.6) k/uL RBC 4.53 (3.80-5.40) m/uL Hgb 14.4 (11.4-16.0) gm/dL Hct 41.7 (34.0-46.0) % MCV 91.9 (80.0-100.0) fL MCH 31.7 (25.0-35.0) pg MCHC 34.5 (31.0-37.0) g/dL RDW 13.5 (11.5-15.5) % Plt Count 177 (150-450) k/uL Neutrophils % 91 % Lymphocytes % 4 % Monocytes % 4 % Eosinophils % 1 % Basophils % 0 % Neutrophils # 12.1 H (1.3-7.7) k/uL Lymphocytes # 0.5 L (1.0-4.8) k/uL Monocytes # 0.6 (0-1.0) k/uL Eosinophils # 0.1 (0-0.7) k/uL Basophils # 0.0 (0-0.2) k/uL PT (9.0-12.0) sec INR (<1.2) APTT (22.0-30.0) sec D-Dimer (<0.60) mg/L FEU Sodium 137 (137-145) mmol/L Potassium 4.3 (3.5-5.1) mmol/L Chloride 107 (98-107) mmol/L Carbon Dioxide 19 L (22-30) mmol/L Anion Gap 11 mmol/L BUN 11 (7-17) mg/dL Creatinine 1.00 (0.52-1.04) mg/dL Est GFR (CKD-EPI)AfAm 75 (>60 ml/min/1.73 sqM) Est GFR (CKD-EPI)NonAf 65 (>60 ml/min/1.73 sqM) Glucose 105 H (74-99) mg/dL Plasma Lactic Acid Danie 1.6 (0.7-2.0) mmol/L Calcium 9.3 (8.4-10.2) mg/dL Total Bilirubin 1.5 H (0.2-1.3) mg/dL AST 34 (14-36) U/L ALT 45 (9-52) U/L Alkaline Phosphatase 115 (38-126) U/L Troponin I (0.000-0.034) ng/mL Total Protein 7.2 (6.3-8.2) g/dL Albumin 4.0 (3.5-5.0) g/dL Urine Color Urine Appearance (Clear) Urine pH (5.0-8.0) Ur Specific [place] (1.001-1.035) Urine Protein (Negative) Urine Glucose (UA) (Negative) Urine Ketones (Negative) Urine Blood (Negative) Urine Nitrite (Negative) Urine Bilirubin (Negative) Urine Urobilinogen (<2.0) mg/dL Ur Leukocyte Esterase (Negative) Urine WBC (0-5) /hpf Urine WBC Clumps (None) /hpf Ur Squamous Epith Cells (0-4) /hpf Urine Bacteria (None) /hpf Urine Mucus (None) /hpf Disposition Clinical Impression: Sepsis, NSTEMI (non-ST elevated myocardial infarction), Pyelonephritis Disposition: ADMITTED IP TO THIS [facility] Referrals: Erin Grider MD [Primary Care Provider] - 1-2 days Decision Time: 14:45
[2018-06-14] MEDS ORDERED: IBUPROFEN 600 MG TAB PO STA (11:13)
[2018-06-14] MEDS: SODIUM CHLORIDE 0.9% 500 ML IV SCH ×4 (11:24→12:55)
[2018-06-14 11:30] LABS: Appearance,Urine Cloudy (Clear); Bacteria,Urine Rare /hpf; Bilirubin,Urine Negative (Negative); Blood,Urine Moderate (Negative); Color,Urine Yellow; Glucose,Urine (UA) Negative (Negative); Ketones,Urine Negative (Negative); Leukocyte Esterase,Urine Large (Negative); Mucus,Urine Rare /hpf; Nitrite,Urine Negative (Negative); Protein,Urine 1+ (Negative); Squamous Epithelial Cell,Urine 2 /hpf (0-4); WBC,Urine 138 /hpf (0-5)
[2018-06-14] MEDS ORDERED: cefTRIAXone IN SWFI 1,000 MG/10 ML SYRINGE IVP STA (11:36)
[2018-06-14 11:38] LABS: Basophils % (A) 0 %; Eosinophils # (A) 0.1 k/uL (0-0.7); Eosinophils % (A) 1 %; HCT 41.7 % (34.0-46.0); HGB 14.4 gm/dL (11.4-16.0); Lymphocytes # (A) 0.5 k/uL (1.0-4.8); Lymphocytes % (A) 4 %; MCH 31.7 pg (25.0-35.0); MCHC 34.5 g/dL (31.0-37.0); MCV 91.9 fL (80.0-100.0); Mean Platelet Volume 7.7; Monocytes # (A) 0.6 k/uL (0-1.0); Monocytes % (A) 4 %; Neutrophils # (A) 12.1 k/uL (1.3-7.7); Neutrophils % (A) 91 %; Platelet Count 177 k/uL (150-450); RBC 4.53 m/uL (3.80-5.40); RDW 13.5 % (11.5-15.5); WBC 13.3 k/uL (3.8-10.6)
--- NOTE | 2018-06-14 11:48 | XR ---
EXAMINATION TYPE: XR chest 2V DATE OF EXAM ORDERED: 06/14/2018 HISTORY: Fever. REFERENCE: None. FINDINGS: The lungs are clear. Pleural spaces are clear. Heart size is normal. IMPRESSION: NORMAL CHEST.
[2018-06-14 11:49] LABS: Calcium 9.3 mg/dL (8.4-10.2); Potassium 4.3 mmol/L (3.5-5.1); Total Bilirubin 1.5 mg/dL (0.2-1.3); Total Protein 7.2 g/dL (6.3-8.2)
[2018-06-14 12:11] LABS: INR 1.1 (<1.2); Partial Thromboplastin Time 25.2 sec (22.0-30.0); Prothrombin Time 10.9 sec (9.0-12.0)
[2018-06-14 12:27] LABS: D-Dimer 6.2 mg/L FEU (<0.60)
[2018-06-14] MEDS ORDERED: HEPARIN SODIUM,PORCINE 5,000 UNIT/ML 1 ML VIAL IV PRN ×2 (12:28→22:43)
[2018-06-14] MEDS ORDERED: HEPARIN SODIUM,PORCINE 10,000 UNIT/ML 1 ML VIAL IV ONE (12:28)
[2018-06-14] MEDS ORDERED: HEPARIN SOD,PORK IN 0.45% NACL 25,000 UNIT in 0.45% NACL 1 500ML.BAG IV SCH ×2 (12:30→22:45)
--- NOTE | 2018-06-14 14:23 | CT ---
EXAMINATION TYPE: CT chest angio for PE DATE OF EXAM: 06/14/2018 COMPARISON: HISTORY: Pain, SOB, elevated trop CT DLP: 444.40 mGycm Automated exposure control for dose reduction was used. CONTRAST: CT Chest for pulmonary embolism performed with with IV Contrast, patient injected with 100 ml mL of I sovue 370. FINDINGS: LUNGS: The lungs are grossly clear, there is no concerning parenchymal mass or nodule identified. T here is no pleural effusion or pneumothorax seen. The tracheobronchial tree is patent. MEDIASTINUM: There is satisfactory enhancement of the pulmonary artery and its branches, there is no CT evidence for pulmonary embolism. There are no greater than 1 cm hilar or mediastinal lymph nodes. No pericardial effusion is seen. Pulmonary artery measures 3 cm. Correlate to exclude pulmonary ar trey hypertension. Metallic density present at the level of the ligamentum flavum arteriosum. AORTA: No additional significant abnormality is seen. OTHER: The liver shows low attenuation suggestive of hepatic steatosis. IMPRESSION: No evident pulmonary embolism. Hepatic steatosis. Additional findings above.
[2018-06-14] MEDS ORDERED: metroNIDAZOLE-NS PMX 500 MG in SALINE 1 100ML.BAG IVPB STA (14:31)
[2018-06-14] MEDS ORDERED: PIPERACILLIN-TAZOBACTAM 3.375 GM in DEXTROSE/WATER 1 50ML.BAG IVPB STA (14:31)
[2018-06-14] MEDS ORDERED: ONDANSETRON 4 MG/2 ML VIAL IVP PRN (14:53)
[2018-06-14] MEDS ORDERED: NALOXONE 0.4 MG/ML 1 ML VIAL IV PRN (14:53)
[2018-06-14] MEDS: SODIUM CHLORIDE 0.9% 1,000 ML IV SCH (15:07)
--- NOTE | 2018-06-14 16:46 | P.CRDCN ---
History of Present Illness Consult date: 06/14/18 Chief complaint: Feeling weak History of present illness: This is a pleasant 52-year-old female patient with no significant past medical history presented to the emergency room complaining of fever and chills. The patient symptoms started just this past when she was at work and she had an episode of fever and chills and felt weak. At that point she did not have any other symptoms of abdominal pain, nausea, or vomiting or dizziness or lightheadedness or syncope. The following day she did have another episode of fever and chills as well at home. She presented to an urgent care where she had a chest x-ray and abdominal x-ray and she was sent home. Earlier today she was feeling nauseated and she vomited and for that reason she presented to the emergency room. In the ER after she presented she did have another episode of fever and chills. The patient also was describing changing in the color of the urine without any burning on urination or dysuria. She was diagnosed with pyelonephritis and she was started on IV fluid and she will be started also on antibiotic for that. We get involved in her care because the cardiac enzymes were checked and came in to be slightly abnormal. Please note that the patient was tachycardic when she presented to the hospital and also she did have marginally low blood pressure. No symptoms of chest pain or chest discomfort before she presented. She stated that before all of that happened she was experiencing some shortness of breath with exertion which seems to be chronic. Also the patient stated that she was diagnosed in the past with hypertension and dyslipidemia and she was on medications for both but she has not been taking her medications. The EKG showed sinus rhythm with nonspecific changes inferiorly. Past Medical History Past Medical History: Hyperlipidemia, Hypertension, Liver Disease Additional Past Medical History / Comment(s): Hep C-treated in 2001 and in remission, past hx of HTN/hyperlipidemia but improved and taken off RXs, ectopic with surgery. History of Any Multi-Drug Resistant Organisms: None Reported Past Surgical History: Appendectomy, Section, Tonsillectomy Additional Past Surgical History / Comment(s): L oophorectomy Past Anesthesia/Blood Transfusion Reactions: No Reported Reaction Past Psychological History: No Psychological Hx Reported Smoking Status: Former smoker Past Alcohol Use History: None Reported Past Drug Use History: None Reported - Past Family History Father Family Medical History: Coronary Artery Disease (CAD), Myocardial Infarction ([place] ) Additional Family Medical History / Comment(s): Father has had 2 MIs and is 73 yrs old. Mother History Unknown: Yes Medications and Allergies Home Medications Medication Instructions Recorded Confirmed Type Ibuprofen [Motrin Ib] 800 mg PO TID PRN 06/14/18 06/14/18 History Allergies Allergy/AdvReac Type Severity Reaction Status Date / Time codeine Allergy Unknown Verified 06/14/18 16:04 Physical Exam Vitals: Vital Signs Temp Pulse Resp BP Pulse Ox 06/14/18 14:49 68 18 124/79 98 06/14/18 13:07 98.7 F 69 16 114/55 99 06/14/18 11:20 101.3 F H 96 18 121/58 96 06/14/18 10:19 98.4 F 112 H 22 106/64 96 Intake and Output 06/14/18 06/14/18 06/14/18 06:59 14:59 22:59 Other: Weight 108.862 kg - Constitutional General appearance: no acute distress - Respiratory Respiratory: bilateral: CTA - Cardiovascular Rhythm: regular Heart sounds: normal: S1, S2 Results 06/14/18 11:24 06/14/18 11:24 Cardiac Enzymes 06/14/18 06/14/18 Range/Units 11:24 11:24 AST 34 (14-36) U/L Troponin I 0.221 H* (0.000-0.034) ng/mL Coagulation 06/14/18 Range/Units 11:24 PT 10.9 (9.0-12.0) sec APTT 25.2 (22.0-30.0) sec CBC 06/14/18 Range/Units 11:24 WBC 13.3 H (3.8-10.6) k/uL RBC 4.53 (3.80-5.40) m/uL Hgb 14.4 (11.4-16.0) gm/dL Hct 41.7 (34.0-46.0) % Plt Count 177 (150-450) k/uL Comprehensive Metabolic Panel 06/14/18 Range/Units 11:24 Sodium 137 (137-145) mmol/L Potassium 4.3 (3.5-5.1) mmol/L Chloride 107 (98-107) mmol/L Carbon Dioxide 19 L (22-30) mmol/L BUN 11 (7-17) mg/dL Creatinine 1.00 (0.52-1.04) mg/dL Glucose 105 H (74-99) mg/dL Calcium 9.3 (8.4-10.2) mg/dL AST 34 (14-36) U/L ALT 45 (9-52) U/L Alkaline Phosphatase 115 (38-126) U/L Total Protein 7.2 (6.3-8.2) g/dL Albumin 4.0 (3.5-5.0) g/dL Current Medications Generic Name Dose Route Start Last Admin Trade Name Freq PRN Reason Stop Dose Admin Aspirin 81 mg 06/15/18 09:00 Aspirin PO DAILY [facility] Heparin Sodium (Porcine) 0 unit 06/14/18 12:28 Heparin IV PER PROTOCOL PRN Low PTT Protocol Heparin Sodium/Sodium Chloride 500 mls @ 39.19 mls/hr 06/14/18 12:30 12:51 25,000 unit/ Sodium Chloride IV 18 units/kg/hr .[id number] MICHEAL 39.19 mls/hr Administration Protocol 18 UNITS/KG/HR Sodium Chloride 1,000 mls @ 20 mls/hr 06/14/18 15:00 06/14/18 15:07 Saline 0.9% IV Not Given .Q24H [facility] Ibuprofen 400 mg 06/14/18 14:53 Motrin PO Q6HR PRN Mild Pain or Fever > 100.5 Naloxone HCl 0.2 mg 06/14/18 14:53 Narcan IV Q2M PRN Opioid Reversal Ondansetron HCl 4 mg 06/14/18 14:53 Zofran IVP Q8HR PRN Nausea And Vomiting Intake and Output 06/14/18 06/14/18 06/14/18 06:59 14:59 22:59 Other: Weight 108.862 kg Patient Weight 06/15/18 06:59 Weight 108.862 kg 06/14/18 11:24 06/14/18 11:24 Assessment and Plan Assessment: Assessment #1 UTI/pyelonephritis #2 fever and chills secondary to the above #3 mildly abnormal cardiac enzymes #4 possible underlying hypertension and dyslipidemia Plan #1 follow-up with the serial cardiac enzymes. #2 the abnormal cardiac enzymes is likely secondary to type II [place] and sinus tachycardia and hypotension #3 the patient did not have any symptoms of chest pain or chest discomfort and the EKG did not show any ischemic changes #4 I will obtain an echocardiogram was Doppler #5 add aspirin to the current medical regimen. Consider adding metoprolol once the blood pressure improved #6 the patient does need to be ruled out for severe underlying coronary artery disease probably as an outpatient. Thank you for allowing us participate in her care and we will continue following up with the patient
[2018-06-14] MEDS: IBUPROFEN 400 MG TAB PO PRN (20:29)
[2018-06-15 06:04] LABS: Basophils % (A) 0 %; Eosinophils # (A) 0.1 k/uL (0-0.7); Eosinophils % (A) 1 %; HCT 36.8 % (34.0-46.0); HGB 12.3 gm/dL (11.4-16.0); Lymphocytes # (A) 1.7 k/uL (1.0-4.8); Lymphocytes % (A) 14 %; MCH 31.4 pg (25.0-35.0); MCHC 33.4 g/dL (31.0-37.0); MCV 93.8 fL (80.0-100.0); Mean Platelet Volume 7.8; Monocytes # (A) 0.9 k/uL (0-1.0); Monocytes % (A) 8 %; Neutrophils # (A) 8.9 k/uL (1.3-7.7); Neutrophils % (A) 74 %; Platelet Count 158 k/uL (150-450); RBC 3.92 m/uL (3.80-5.40); WBC 12.1 k/uL (3.8-10.6)
[2018-06-15 06:18] LABS: Anion Gap 6 mmol/L; Blood Urea Nitrogen 11 mg/dL (7-17); Calcium 8.1 mg/dL (8.4-10.2); Carbon Dioxide 22 mmol/L (22-30); Chloride 110 mmol/L (98-107); Glucose 95 mg/dL (74-99); Potassium 3.7 mmol/L (3.5-5.1); Sodium 138 mmol/L (137-145)
[2018-06-15] MEDS: ASPIRIN 81 MG PO SCH (07:36)
[2018-06-15] MEDS: cefTRIAXone IN SWFI 1,000 MG/10 ML SYRINGE IVP SCH (09:19)
--- NOTE | 2018-06-15 12:57 | P.HPIM ---
History of Present Illness H&P Date: 06/15/18 Chief Complaint: Fatigue, sweats This is a 52-year-old female patient of Dr. Grider with past medical history of hyperlipidemia and hypertension not currently on medication, hepatitis C treated in 2001, ectopic . Patient gives history that she went to the urgent care center on Friday and had a urinalysis and blood work done. X-rays were done that did not show any kidney stones. She was not diagnosed with kidney infection at the time but told that she had a viral illness. She complained of having fever, chills, nausea and vomiting. She had a coming into [facility] emergency center on Friday. She also complains of urinary incontinence. Patient was given a dose of ceftriaxone and admitted to the selective care unit. She has had slightly elevated troponins for which she has been seen by Dr. Agarwal. Echocardiogram ordered and aspirin 81 mg started. Patient is also on heparin drip which has been discontinued. Patient denies having any chest pain but has some chronic exertional shortness of breath. Urine culture and blood culture in progress. Renal ultrasound has been ordered. Review of Systems All systems: negative Constitutional: Reports fatigue, Reports lethargy, Reports weakness, Denies chills, Denies fever Eyes: denies blurred vision, denies pain Ears, nose, mouth and throat: Denies headache, Denies sore throat Cardiovascular: Reports shortness of breath, Denies chest pain, Denies lightheadedness, Denies syncope Respiratory: Denies cough, Denies cough with sputum, Denies dyspnea, Denies excessive sputum, Denies hemoptysis, Denies home oxygen, Denies wheezing Gastrointestinal: Denies abdominal pain, Denies diarrhea, Denies nausea, Denies vomiting Genitourinary: Denies dysuria, Denies hematuria Musculoskeletal: Denies myalgias Integumentary: Denies pruritus, Denies rash Neurological: Denies numbness, Denies weakness Psychiatric: Denies anxiety, Denies depression Endocrine: Denies fatigue, Denies weight change Past Medical History Past Medical History: Hyperlipidemia, Hypertension, Liver Disease Additional Past Medical History / Comment(s): Hep C-treated in 2001 and in remission, past hx of HTN/hyperlipidemia but improved and taken off RXs, ectopic with surgery. History of Any Multi-Drug Resistant Organisms: None Reported Past Surgical History: Appendectomy, Section, Tonsillectomy Additional Past Surgical History / Comment(s): L oophorectomy Past Anesthesia/Blood Transfusion Reactions: No Reported Reaction Past Psychological History: No Psychological Hx Reported Additional Psychological History / Comment(s): Pt resides with her spouse and mother in law. She is independent. 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 She denies any marijuana, street drug or alcohol use. Smoking Status: Former smoker Past Alcohol Use History: None Reported Additional Past Alcohol Use History / Comment(s): Pt started smoking in 1984 and quit in 1993. Past Drug Use History: None Reported - Past Family History Father Family Medical History: Coronary Artery Disease (CAD), Myocardial Infarction (MT ) Additional Family Medical History / Comment(s): Father has had 2 MIs and is 73 yrs old. Mother History Unknown: Yes Additional Family Medical History / Comment(s): Patient states that her mother is alive but she does not know any of her medical history. Brother(s) Additional Family Medical History / Comment(s): Patient has one half-brother with no major medical problems. Patient has one half-sister with Angelman syndrome. Patient has one child. Medications and Allergies Home Medications Medication Instructions Recorded Confirmed Type Ibuprofen [Motrin Ib] 800 mg PO TID PRN 06/14/18 06/14/18 History Allergies Allergy/AdvReac Type Severity Reaction Status Date / Time codeine Allergy Unknown Verified 06/14/18 20:14 Physical Exam Vitals: Vital Signs Temp Pulse Pulse Resp BP BP Pulse Ox 06/15/18 07:33 97.1 F L 69 16 133/71 96 06/15/18 04:00 97.8 F 75 16 131/74 96 06/15/18 00:00 97.6 F 74 17 124/59 96 06/14/18 20:00 100.0 F H 84 16 131/69 97 06/14/18 19:23 97.9 F 89 16 165/77 99 06/14/18 16:54 75 16 148/75 100 06/14/18 14:49 68 18 124/79 98 06/14/18 13:07 98.7 F 69 16 114/55 99 06/14/18 11:20 101.3 F H 96 18 121/58 96 06/14/18 10:19 98.4 F 112 H 22 106/64 96 Intake and Output 06/14/18 06/15/18 06/15/18 22:59 06:59 14:59 Intake Total 274.082 81.699 132.198 Balance 274.082 81.699 132.198 Intake: IV 20 60 Sodium Chloride 0.9% 1, 20 60 000 ml @ 20 mls/hr IV . Q24H [facility] Rx#:[id number] Intake, IV Titration 254.082 21.699 132.198 Amount Heparin Sod,Pork in 0.45% 254.082 NaCl 25,000 unit In 0.45 % NaCl 1 500ml.bag @ 18 UNITS/KG/HR 39.19 mls/hr IV .[id number] [facility] Rx#: [id number] Heparin Sod,Pork in 0.45% 21.699 132.198 NaCl 25,000 unit In 0.45 % NaCl 1 500ml.bag @ 9.2 UNITS/KG/HR 20.03 mls/hr IV .Q24H [facility] Rx#: [id number] Other: Voiding Method Toilet Toilet Toilet # Voids 1 Weight 108.86 kg Gen: This is a morbidly obese 52-year-old female. She is sitting up in bed and appears to be comfortable and in no acute distress. HEENT: Head is atraumatic, normocephalic. Pupils equal, round. Sclerae is anicteric. NECK: Supple. No JVD. No lymphadenopathy. No thyromegaly. LUNGS: Clear to auscultation. No wheezes or rhonchi. No intercostal retractions. HEART: Regular rate and rhythm. No murmur. ABDOMEN: Soft. Bowel sounds are present. No masses. No tenderness. EXTREMITIES: No pedal edema. No calf tenderness. NEUROLOGICAL: Patient is awake, alert and oriented x3. Cranial nerves 2 through 12 are grossly intact. Results CBC & Chem 7: 06/15/18 05:45 06/15/18 05:45 Labs: Abnormal Lab Results - Last 24 Hours (Table) 06/14/18 06/14/18 06/14/18 Range/Units 11:09 11:24 11:24 WBC (3.8-10.6) k/uL Neutrophils # (1.3-7.7) k/uL Lymphocytes # (1.0-4.8) k/uL APTT (22.0-30.0) sec D-Dimer 6.20 H (<0.60) mg/L FEU Chloride (98-107) mmol/L Carbon Dioxide (22-30) mmol/L Glucose (74-99) mg/dL Calcium (8.4-10.2) mg/dL Total Bilirubin (0.2-1.3) mg/dL Troponin I 0.221 H* (0.000-0.034) ng/mL Urine Appearance Cloudy H (Clear) Urine Protein 1+ H (Negative) Urine Blood Moderate H (Negative) Ur Leukocyte Esterase Large H (Negative) Urine WBC 138 H (0-5) /hpf Urine WBC Clumps Few H (None) /hpf Urine Bacteria Rare H (None) /hpf Urine Mucus Rare H (None) /hpf 06/14/18 06/14/18 06/14/18 Range/Units 11:24 11:24 18:30 WBC 13.3 H (3.8-10.6) k/uL Neutrophils # 12.1 H (1.3-7.7) k/uL Lymphocytes # 0.5 L (1.0-4.8) k/uL APTT 105.4 H* (22.0-30.0) sec D-Dimer (<0.60) mg/L FEU Chloride (98-107) mmol/L Carbon Dioxide 19 L (22-30) mmol/L Glucose 105 H (74-99) mg/dL Calcium (8.4-10.2) mg/dL Total Bilirubin 1.5 H (0.2-1.3) mg/dL Troponin I (0.000-0.034) ng/mL Urine Appearance (Clear) Urine Protein (Negative) Urine Blood (Negative) Ur Leukocyte Esterase (Negative) Urine WBC (0-5) /hpf Urine WBC Clumps (None) /hpf Urine Bacteria (None) /hpf Urine Mucus (None) /hpf 06/14/18 06/15/18 06/15/18 Range/Units 18:30 00:19 05:45 WBC (3.8-10.6) k/uL Neutrophils # (1.3-7.7) k/uL Lymphocytes # (1.0-4.8) k/uL APTT 60.9 H (22.0-30.0) sec D-Dimer (<0.60) mg/L FEU Chloride 110 H (98-107) mmol/L Carbon Dioxide (22-30) mmol/L Glucose (74-99) mg/dL Calcium 8.1 L (8.4-10.2) mg/dL Total Bilirubin (0.2-1.3) mg/dL Troponin I 0.055 H* (0.000-0.034) ng/mL Urine Appearance (Clear) Urine Protein (Negative) Urine Blood (Negative) Ur Leukocyte Esterase (Negative) Urine WBC (0-5) /hpf Urine WBC Clumps (None) /hpf Urine Bacteria (None) /hpf Urine Mucus (None) /hpf 06/15/18 06/15/18 Range/Units 05:45 05:45 WBC 12.1 H (3.8-10.6) k/uL Neutrophils # 8.9 H (1.3-7.7) k/uL Lymphocytes # (1.0-4.8) k/uL APTT 38.7 H (22.0-30.0) sec D-Dimer (<0.60) mg/L FEU Chloride (98-107) mmol/L Carbon Dioxide (22-30) mmol/L Glucose (74-99) mg/dL Calcium (8.4-10.2) mg/dL Total Bilirubin (0.2-1.3) mg/dL Troponin I (0.000-0.034) ng/mL Urine Appearance (Clear) Urine Protein (Negative) Urine Blood (Negative) Ur Leukocyte Esterase (Negative) Urine WBC (0-5) /hpf Urine WBC Clumps (None) /hpf Urine Bacteria (None) /hpf Urine Mucus (None) /hpf Microbiology - Last 24 Hours (Table) 06/14/18 11:09 Urine Culture - Preliminary Urine,Voided Thrombosis Risk Factor Assmnt - DVT/VTE Prophylaxis DVT/VTE Prophylaxis: Pharmacologic Prophylaxis ordered - Choose All That Apply Any of the Below Risk Factors Present?: Yes Each Factor Represents 1 point: Age 41-60 years, Obesity (BMI >25) Other Risk Factors: No Other congenital or acquired thrombophilia - If yes, enter type in comment: No Thrombosis Risk Factor Assessment Total Risk Factor Score: 2 Thrombosis Risk Factor Assessment Level: Low Risk Assessment and Plan Plan: 1. Urinary tract infection with possible pyelonephritis. Patient will be continued on ceftriaxone. Urine culture, blood culture pending. Renal ultrasound ordered. 2. Elevated troponins. Echocardiogram has been ordered. Elevated cardiac enzymes thought to be related to tachycardia and hypotension. No acute changes on EKG. Continue aspirin 81 mg daily. Patient will need outpatient follow-up for stress testing. 3. History of hyperlipidemia and hypertension but patient has been off medications. 4. History of ectopic with left oophorectomy. 5. DVT prophylaxis. Heparin subcu. 6. GI prophylaxis. Pepcid. Patient will be admitted to the hospital for a minimum of 2 night stay. Discharge plan: Return home Impression and plan of care have been directed as dictated by the signing physician. Remedios Almaraz nurse practitioner acting as scribe for signing physician.
--- NOTE | 2018-06-15 13:26 | US ---
EXAMINATION TYPE: US renals and bladder DATE OF EXAM: 06/15/2018 COMPARISON: CT 2017 CLINICAL HISTORY: pyelonephritis. EXAM MEASUREMENTS: Right Kidney: 11.4 x 4.4 x 5.9 cm Left Kidney: 12.5 x 5.4 x 4.9 cm Right Kidney: No hydronephrosis or masses seen Left Kidney: No hydronephrosis or masses seen Bladder: wnl Bilateral Jets seen: Yes Cortical medullary differentiation is maintained. There is no evident pathologic calcification. Incid ental note made of coarse liver echogenicity. There is no ascites. IMPRESSION: Unremarkable renal ultrasound. Correlate for hepatic steatosis.
[2018-06-15] MEDS: METOPROLOL TARTRATE 12.5 MG TAB PO SCH ×2 (13:34→20:12)
--- NOTE | 2018-06-15 14:16 | P.PN ---
Subjective Progress Note Date: 06/15/18 This is a pleasant 52-year-old female patient with history of hyperlipidemia, hepatitis C that was treated in 2001 and is in remission and hypertension. She presented to the emergency department complaining of fever and chills. Her symptoms started this past while she was at work. She had an episode of fever and chills along with weakness. She presented to an urgent care where she had a chest x-ray and abdominal x-ray and she was sent home. She presented to the emergency room due to becoming nauseous and vomiting. In the emergency department she continued to have episodes of fevers and chills. She did complain of change in color of her urine without any dysuria, or burning on urination. She was diagnosed with pyelonephritis and started on IV fluids as well as antibiotics. We were consulted due to elevated cardiac enzymes. When she presented to the hospital she was tachycardic and had marginally low blood pressure. She's had no symptoms of chest discomfort, chest pain or palpitations. She did complain of shortness of breath during episodes of fever and chills. EKG showed sinus rhythm with nonspecific changes inferiorly. Upon examination, patient denies further chills or shortness of breath. She denies complaints of chest discomfort, palpitations, nausea or vomiting. She is complaining of some hematuria. She is currently on a heparin drip. Objective - Vital Signs Vital signs: Vital Signs Temp 97.1 F L 06/15/18 07:33 Pulse 69 06/15/18 07:33 Resp 16 06/15/18 07:33 BP 133/71 06/15/18 07:33 Pulse Ox 96 06/15/18 07:33 Intake & Output 06/14/18 06/15/18 06/15/18 18:59 06:59 18:59 Intake Total 20 335.781 132.198 Balance 20 335.781 132.198 Weight 108.862 kg 108.86 kg Intake: IV 20 60 Sodium Chloride 0.9% 1, 20 60 000 ml @ 20 mls/hr IV . Q24H [facility] Rx#:[id number] Intake, IV Titration 275.781 132.198 Amount Heparin Sod,Pork in 0.45% 254.082 NaCl 25,000 unit In 0.45 % NaCl 1 500ml.bag @ 18 UNITS/KG/HR 39.19 mls/hr IV .[id number] [facility] Rx#: [id number] Heparin Sod,Pork in 0.45% 21.699 132.198 NaCl 25,000 unit In 0.45 % NaCl 1 500ml.bag @ 9.2 UNITS/KG/HR 20.03 mls/hr IV .Q24H [facility] Rx#: [id number] Other: Voiding Method Toilet Toilet # Voids 1 1 # Bowel Movements 0 - Exam PHYSICAL EXAMINATION: HEENT: Head is atraumatic, normocephalic. Pupils equal, round. Neck is supple. There is no elevated jugular venous pressure. HEART EXAMINATION: Heart sounds regular, S1 and S2 normal. No murmur or gallop heard. CHEST EXAMINATION: Lungs are clear to auscultation and precussion. No chest wall tenderness is noted on palpation or with deep breathing. ABDOMEN: Soft, nontender. Bowel sounds are heard. No organomegaly noted. EXTREMITIES: 2+ peripheral pulses with no evidence of peripheral edema and no calf tenderness noted. NEUROLOGIC patient is awake, alert and oriented x3. . - Labs CBC & Chem 7: 06/15/18 05:45 06/15/18 05:45 Labs: Abnormal Lab Results - Last 24 Hours (Table) 06/14/18 06/14/18 06/14/18 Range/Units 11:24 11:24 18:30 WBC (3.8-10.6) k/uL Neutrophils # (1.3-7.7) k/uL APTT 105.4 H* (22.0-30.0) sec D-Dimer 6.20 H (<0.60) mg/L FEU Chloride (98-107) mmol/L Calcium (8.4-10.2) mg/dL Troponin I 0.221 H* (0.000-0.034) ng/mL 06/14/18 06/15/18 06/15/18 Range/Units 18:30 00:19 05:45 WBC (3.8-10.6) k/uL Neutrophils # (1.3-7.7) k/uL APTT 60.9 H (22.0-30.0) sec D-Dimer (<0.60) mg/L FEU Chloride 110 H (98-107) mmol/L Calcium 8.1 L (8.4-10.2) mg/dL Troponin I 0.055 H* (0.000-0.034) ng/mL 06/15/18 06/15/18 Range/Units 05:45 05:45 WBC 12.1 H (3.8-10.6) k/uL Neutrophils # 8.9 H (1.3-7.7) k/uL APTT 38.7 H (22.0-30.0) sec D-Dimer (<0.60) mg/L FEU Chloride (98-107) mmol/L Calcium (8.4-10.2) mg/dL Troponin I (0.000-0.034) ng/mL Microbiology - Last 24 Hours (Table) 06/14/18 11:09 Urine Culture - Preliminary Urine,Voided Assessment and Plan Assessment: #1 UTI/pyelonephritis #2 fever and chills secondary to the above #3 mildly abnormal cardiac enzymes #4 possible underlying hypertension and dyslipidemia Plan: From cardiology perspective, abnormal cardiac enzyme are likely secondary to a type II event due to tachycardia and hypotension. We will discontinue heparin drip due to hematuria. We will review echocardiogram with Doppler. Will continue aspirin 81 mg by mouth daily and add metoprolol tartrate at a low dose. I'll also add a statin. Monitor blood pressures closely. She will need to be ruled out for severe underlying coronary artery disease which will likely be done as an outpatient. We'll continue to follow patient for further recommendations accordingly. [employer]IC ANAESTHETIST note has been reviewed, I agree with a documented findings and plan of care. Patient was seen and examined.
--- NOTE | 2018-06-15 15:16 | ECHOF ---
Referral Reason:NSTEMI MEASUREMENTS -------- HEIGHT: 157.5 cm WEIGHT: 108.4 kg BP: 131/74 IVSd: 0.9 cm (0.6 - 1.1) LVIDd: 4.6 cm (3.9 - 5.3) LVPWd: 1.0 cm (0.6 - 1.1) IVSs: 1.4 cm LVIDs: 3.4 cm LVPWs: 1.4 cm RVIDd: 2.7 cm (< 3.3) LAESV Index (A-L): 22.63 ml/m Ao Diam: 2.5 cm (2.0 - 3.7) LA Diam: 3.7 cm (2.7 - 3.8) AV Cusp: 1.7 cm (1.5 - 2.6) EPSS: 0.8 cm MV E Ariel: 1.10 m/s MV DecT: 188 ms MV A Ariel: 0.71 m/s MV E/A Ratio: 1.55 RAP: 5.00 mmHg RVSP: 16.84 mmHg MV EF SLOPE: 123.23 mm/s (70 - 150) MV EXCURSION: 1.38 cm (> 18.000) FINDINGS -------- Sinus rhythm. This was a technically good study. The left ventricular size is normal. Left ventricular wall thickness is normal. Overall left vent ricular systolic function is low-normal with, an EF between 50 - 55 %. The right ventricle is normal in size and function. Normal LA size by volume 22+/-6 ml/m2. The right atrium is normal in size. Aortic valve is trileaflet and is mildly thickened. There is no evidence of aortic regurgitation. There is no evidence of aortic stenosis. The mitral valve leaflets are mildly thickened. There is trace to mild mitral regurgitation. Trace tricuspid regurgitation present. Right ventricular systolic pressure is normal at < 35 mmHg. There is no evidence of pulmonary hypertension. Trace/mild (physiologic) pulmonic regurgitation. The aortic root size is normal. Normal inferior vena cava with normal inspiratory collapse consistent with estimated right atrial pre ssure of 5 mmHg. There is no pericardial effusion. CONCLUSIONS -------- 1. Sinus rhythm. 2. This was a technically good study. 3. The left ventricular size is normal. 4. Left ventricular wall thickness is normal. 5. Overall left ventricular systolic function is low-normal with, an EF between 50 - 55 %. 6. Normal LA size by volume 22+/-6 ml/m2. 7. Aortic valve is trileaflet and is mildly thickened. 8. The mitral valve leaflets are mildly thickened. 9. There is trace to mild mitral regurgitation. 10. Trace tricuspid regurgitation present. 11. Right ventricular systolic pressure is normal at < 35 mmHg. 12. There is no evidence of pulmonary hypertension. 13. Trace/mild (physiologic) pulmonic regurgitation. 14. The aortic root size is normal. 15. There is no pericardial effusion. GROUP UNDERWRITER: Erwin Lamb RDCS
[2018-06-15] MEDS: HEPARIN SODIUM,PORCINE 5,000 UNIT/ML 1 ML VIAL SQ SCH ×2 (16:28→23:45)
[2018-06-15] MEDS: SODIUM CHLORIDE 0.9% 1,000 ML IV SCH (16:29)
[2018-06-15] MEDS: IBUPROFEN 400 MG TAB PO PRN (19:31)
[2018-06-15] MEDS ORDERED: ATORVASTATIN 20 MG TAB PO SCH (21:00)
[2018-06-16 05:21] VITALS: PULSE 70; RESP 16
[2018-06-16 07:03] LABS: HCT 35.5 % (34.0-46.0); HGB 11.9 gm/dL (11.4-16.0); MCH 31.4 pg (25.0-35.0); MCHC 33.4 g/dL (31.0-37.0); Mean Platelet Volume 8.6; Platelet Count 157 k/uL (150-450); RBC 3.78 m/uL (3.80-5.40); RDW 13.6 % (11.5-15.5); WBC 7.1 k/uL (3.8-10.6)
[2018-06-16] MEDS: ASPIRIN 81 MG PO SCH (08:11)
[2018-06-16] MEDS: METOPROLOL TARTRATE 12.5 MG TAB PO SCH (08:11)
[2018-06-16] MEDS: cefTRIAXone IN SWFI 1,000 MG/10 ML SYRINGE IVP SCH (08:14)
[2018-06-16 08:16] VITALS: BP 142/77; TEMP 96.8
[2018-06-16] MEDS ORDERED: METOPROLOL TARTRATE 12.5 MG TAB PO STA (08:34)
[2018-06-16 08:54] LABS: Band Neutrophils % 1 %; Eosinophils # (M) 0.07 k/uL (0-0.7); Lymphocytes # (M) 1.42 k/uL (1.0-4.8); Monocytes # (M) 0.64 k/uL (0-1.0); Myelocytes # (M) 0.07 k/uL (0); Myelocytes % 1 %; Neutrophils % (M) 69 %; Nucleated Red Blood Cells 0 /100 WBC (0-0); Total Cells Counted 200
[2018-06-16] MEDS ORDERED: FAMOTIDINE 20 MG TAB PO SCH (09:00)
--- NOTE | 2018-06-16 10:16 | P.PN ---
Subjective Progress Note Date: 06/16/18 Principal diagnosis: Acute non-STEMI This is a pleasant 52-year-old female patient with no significant past medical history presented to the emergency room complaining of fever and chills. The patient symptoms started just this past when she was at work and she had an episode of fever and chills and felt weak. At that point she did not have any other symptoms of abdominal pain, nausea, or vomiting or dizziness or lightheadedness or syncope. The following day she did have another episode of fever and chills as well at home. She presented to an urgent care where she had a chest x-ray and abdominal x-ray and she was sent home. Earlier today she was feeling nauseated and she vomited and for that reason she presented to the emergency room. In the ER after she presented she did have another episode of fever and chills. The patient also was describing changing in the color of the urine without any burning on urination or dysuria. She was diagnosed with pyelonephritis and she was started on IV fluid and she will be started also on antibiotic for that. We get involved in her care because the cardiac enzymes were checked and came in to be slightly abnormal. Please note that the patient was tachycardic when she presented to the hospital and also she did have marginally low blood pressure. No symptoms of chest pain or chest discomfort before she presented. She stated that before all of that happened she was experiencing some shortness of breath with exertion which seems to be chronic. Also the patient stated that she was diagnosed in the past with hypertension and dyslipidemia and she was on medications for both but she has not been taking her medications. The EKG showed sinus rhythm with nonspecific changes inferiorly. The patient was initiated on aspirin, beta pamella, and statin. She denies having any chest pain or chest discomfort on follow-up with her today. From the cardiac vascular standpoint of view, she can be discharged home, and I'll follow-up with the patient in the office as an outpatient. Severe underlying coronary artery disease to be ruled out. Objective - Vital Signs Vital signs: Vital Signs Temp 96.8 F L 06/16/18 08:00 Pulse 70 06/16/18 08:00 Resp 16 06/16/18 08:00 BP 142/77 06/16/18 08:00 Pulse Ox 96 06/16/18 08:00 Intake & Output 06/15/18 06/16/18 06/16/18 18:59 06:59 18:59 Intake Total 1575.702 240 Output Total 1450 700 Balance 125.702 -700 240 Weight 108.6 kg Intake: IV 240 Sodium Chloride 0.9% 1, 240 000 ml @ 20 mls/hr IV . Q24H [facility] Rx#:[id number] Intake, IV Titration 255.702 Amount Heparin Sod,Pork in 0.45% 255.702 NaCl 25,000 unit In 0.45 % NaCl 1 500ml.bag @ 9.2 UNITS/KG/HR 20.03 mls/hr IV .Q24H [facility] Rx#: [id number] Oral 1080 240 Output: Urine 1450 700 Other: Voiding Method Toilet Toilet # Voids 1 1 # Bowel Movements 0 - Constitutional General appearance: Present: no acute distress - Respiratory Respiratory: bilateral: CTA - Cardiovascular Rhythm: regular Heart sounds: normal: S1, S2 - Labs CBC & Chem 7: 06/16/18 05:37 06/15/18 05:45 Labs: Abnormal Lab Results - Last 24 Hours (Table) 06/16/18 Range/Units 05:37 RBC 3.78 L (3.80-5.40) m/uL Myelocytes # (Manual) 0.07 H (0) k/uL Microbiology - Last 24 Hours (Table) 06/14/18 11:09 Urine Culture - Final Urine,Voided Escherichia coli 06/14/18 11:24 Blood Culture - Preliminary Blood No Growth after 24 hours Assessment and Plan Assessment: Assessment #1 UTI/pyelonephritis #2 fever and chills secondary to the above #3 mildly abnormal cardiac enzymes #4 possible underlying hypertension and dyslipidemia Plan #1 the patient was initiated on anti-ischemic medications #2 from the cardiac vascular standpoint of view she can be discharged home.
--- NOTE | 2018-06-16 13:43 | P.DS ---
Providers Date of admission: 06/14/18 14:53 Expected date of discharge: 06/16/18 Attending physician: Narda Myrick Consults: 06/14/18 14:54 Consult Physician Urgent Consulting Provider: [facility] Consult Reason/Comments: elevated trop Do you want consulting provider notified?: Yes Primary care physician: Erin [facility] Course: This is a 52-year-old female patient of Dr. Grider with past medical history of hyperlipidemia and hypertension not currently on medication, hepatitis C treated in 2001, ectopic . Patient gives history that she went to the urgent care center on Friday and had a urinalysis and blood work done. X-rays were done that did not show any kidney stones. She was not diagnosed with kidney infection at the time but told that she had a viral illness. She complained of having fever, chills, nausea and vomiting. She had a coming into [facility] emergency center on Friday. She also complains of urinary incontinence. Patient was given a dose of ceftriaxone and admitted to the selective care unit. She has had slightly elevated troponins for which she has been seen by Dr. Agarwal. Echocardiogram ordered and aspirin 81 mg started. Patient is also on heparin drip which has been discontinued. Patient denies having any chest pain but has some chronic exertional shortness of breath. Urine culture and blood culture in progress. Renal ultrasound has been ordered. 06/16: Patient has been afebrile, white count is normalized to 7.1. Patient has been cleared for discharge by cardiology. Urine culture is positive for E. coli. Patient has done well on ceftriaxone and Biaxin will be switched to cefuroxime for home. Patient will be discharged home in stable condition with plan to follow up with Dr. Agarwal as an outpatient for further cardiac workup. Echocardiogram reveals EF of 50-55%, mild mitral regurgitation, trace tricuspid regurgitation, no pulmonary hypertension. Renal ultrasound was unremarkable. Discharge diagnoses: 1. Urinary tract infection with possible pyelonephritis. 2. Elevated troponins and will require further workup as an outpatient. 3. History of hyperlipidemia and hypertension 4. History of ectopic with left oophorectomy. Discharge plan: Return home Impression and plan of care have been directed as dictated by the signing physician. Remedios Almaraz nurse practitioner acting as scribe for signing physician. Patient Condition at Discharge: Good Plan - Discharge Summary New Discharge Prescriptions: New Aspirin 81 mg PO DAILY chew Atorvastatin [Lipitor] 20 mg PO HS #30 tab Cefuroxime Axetil [Ceftin] 500 mg PO BID #14 tab L.acidoph,Paracasei, B.lactis [Probiotic] 1 each PO DAILY #30 capsule Metoprolol Tartrate [Lopressor] 25 mg PO BID #60 tablet No Action Ibuprofen [Motrin Ib] 800 mg PO TID PRN PRN Reason: Pain Discharge Medication List Ibuprofen [Motrin Ib] 800 mg PO TID PRN 06/14/18 [History] Aspirin 81 mg PO DAILY chew 06/16/18 [Rx] Atorvastatin [Lipitor] 20 mg PO HS #30 tab 06/16/18 [Rx] Cefuroxime Axetil [Ceftin] 500 mg PO BID #14 tab 06/16/18 [Rx] L.acidoph,Paracasei, B.lactis [Probiotic] 1 each PO DAILY #30 capsule 06/16/18 [ Rx] Metoprolol Tartrate [Lopressor] 25 mg PO BID #60 tablet 06/16/18 [Rx] Follow up Appointment(s)/Referral(s): Erin Grider MD [Primary Care Provider] - 06/24/18 2:00 pm (With Jeri Fox going to [facility]. ) Brendan Agarwal MD [STAFF PHYSICIAN] - 06/30/18 3:45 pm (No Wedne) Patient Instructions/Handouts: Urinary Tract Infection in Women (DC), Cardiac Stress Test (DC) Discharge Disposition: HOME SELF-CARE
--- NOTE | 2018-06-19 09:39 | CDI ---
Last Revision, October 2017 Documentation Clarification Form Date: 06/19/18 From: Carrie Abbott Phone: If you have a question regarding this query, please contact Shilpa Melara at [phone] between 8am and 5pm. Admit Date: 06/14/2018 2:53:00 PM Patient Name: Cleve Cohen Visit Number: [id number] Discharge Date: 06/17/18 ATTENTION: The Clinical Documentation Specialists (CDI) and [facility] Coding Staff appreciate your assistance in clarifying documentation. Please respond to the clarification below the line at the bottom and electronically sign. The CDI & [facility] Coding staff will review the response and follow-up if needed. Please note: Queries are made part of the Legal Health Record. If you have any questions, please contact the author of this message via ITS. Dr. Yusuf oNrton Sepsis is documented in the ED note. History/Risk Factors: Patient was admitted for UTI with possible pyelonephritis. Patient also had dehydration and elevated troponin. Clinical Indicators: Fever and chills WBC/Left Shift: 13.3/12.1 Lactic acid: 1.6 Blood cultures: No growth after 96 hours. Vitals signs on admission: T. 98.4 on admission and then up to 101.3 an hour later, P. 112, R. 22, BP 106/64 Treatment: Antibiotics: IV Rocephin IV Bolus: Sodium Chloride 500 mls @ 1000 mls/hr In your professional opinion, please clarify if these findings signify one of the following conditions, whether the condition is POA, and cause, if known: Sepsis ruled out SIRS, without underlying infectious process Sepsis Severe Sepsis Septic Shock Other, please specify Unable to determine Sepsis MTDD
== END 2018-06-16 10:10 | disposition home or self-care (01) | DRG 871 ==
LOC: EC 10:14 → 6SEL 14:53
PROVIDERS: ADMIT Internal Medicine; ATTEND Internal Medicine
DX: A41.9 Sepsis, unspecified organism (principal); I21.A1 Myocardial infarction type 2; N12 Tubulo-interstitial nephritis, not specified as acute or chronic; I95.9 Hypotension, unspecified; E78.5 Hyperlipidemia, unspecified; E86.0 Dehydration; I10 Essential (primary) hypertension; R32 Unspecified urinary incontinence; B19.20 Unspecified viral hepatitis C without hepatic coma; R31.9 Hematuria, unspecified; R77.9 Abnormality of plasma protein, unspecified; Z87.891 Personal history of nicotine dependence; Z90.721 Acquired absence of ovaries, unilateral; Z90.49 Acquired absence of other specified parts of digestive tract; Z88.5 Allergy status to narcotic agent; Z82.49 Family history of ischemic heart disease and other diseases of the circulatory system
CPT/HCPCS: 36415; 71046; 71275; 76770; 80048; 80053; 81001; 83605; 84484; 85025; 85379; 85610; 85730; 87040; 87077; 87086; 87186; 93005; 93306; 96365; 96366; 96375; 96376; 99285

== ENCOUNTER → 2018-10-02 | Outpatient (CLI) | payer BC ==
--- NOTE | 2018-10-05 12:23 | MM ---
Reason for exam: screening (asymptomatic). Last mammogram was performed 2 years and 5 months ago. History: Excisional biopsy of the right breast, 2013. Benign MG pre op needle loc LT of the left breast, 2012. Physical Findings: A clinical breast exam by your physician is recommended on an annual basis and results should be correlated with mammographic findings. MG Screening Mammo w CAD Bilateral CC and MLO view(s) were taken. Prior study comparison: May 03, 2016, bilateral MG screening mammo w CAD. December 31, 2014, mammogram, performed at [facility]. The breast tissue is heterogeneously dense. This may lower the sensitivity of mammography. Benign appearing bilateral calcifications. No significant changes when compared with prior studies. ASSESSMENT: Benign, BI-RAD 2 RECOMMENDATION: Routine screening mammogram of both breasts in 1 year.
== END ==
LOC: RADMAMWWP 07:19
PROVIDERS: ATTEND Obstetrics & Gynecology Obstetrics
DX: Z12.31 Encounter for screening mammogram for malignant neoplasm of breast (principal)
CPT/HCPCS: 77067

== ENCOUNTER → 2019-01-15 | Outpatient (CLI) | payer BC ==
[2019-01-15 09:51] LABS: Basophils % (A) 0 %; Eosinophils # (A) 0.1 k/uL (0-0.7); Eosinophils % (A) 2 %; HCT 43.2 % (34.0-46.0); HGB 14.3 gm/dL (11.4-16.0); Lymphocytes # (A) 1.5 k/uL (1.0-4.8); Lymphocytes % (A) 25 %; MCH 31.4 pg (25.0-35.0); MCV 95.1 fL (80.0-100.0); Mean Platelet Volume 7.3; Monocytes # (A) 0.3 k/uL (0-1.0); Monocytes % (A) 6 %; Neutrophils % (A) 66 %; Platelet Count 254 k/uL (150-450); RBC 4.54 m/uL (3.80-5.40); RDW 13.6 % (11.5-15.5); WBC 6.1 k/uL (3.8-10.6)
== END | disposition home or self-care (01) ==
LOC: LABPAT 08:34
PROVIDERS: ATTEND Obstetrics & Gynecology Obstetrics
DX: Z01.812 Encounter for preprocedural laboratory examination (principal); N92.0 Excessive and frequent menstruation with regular cycle; D25.9 Leiomyoma of uterus, unspecified
CPT/HCPCS: 36415; 85025

== ENCOUNTER 2019-01-25 08:27 | Day surgery (SDC) | payer BC ==
[2019-01-20 15:04] VITALS: BMI 43.2
[~2019-01-25 08:27] MED LIST: DEXAMETHASONE SOD PHOSPHATE 10 MG/ML 1 ML VIAL IV ONE; LACTATED RINGERS 1,000 ML IV SCH; LIDOCAINE 1% 20 ML VIAL (10MG/ML) FOR IV START INTRADERMA PRN; MIDAZOLAM (PF) 2 MG/2 ML VIAL IV PRN; ceFAZolin IN SWFI 2 GM/20 ML SYRINGE IVP ONE; fentaNYL (PF) 50 MCG/ML 2 ML AMP IV PRN
[2019-01-25] MEDS ORDERED: DEXAMETHASONE SOD PHOS (MDV) 100 MG/10 ML VIAL IVP ONE (09:00)
[2019-01-25] MEDS ORDERED: ONDANSETRON 4 MG/2 ML VIAL IVP ONE (09:00)
[2019-01-25] MEDS ORDERED: LACTATED RINGERS 1,000 ML IV ONE (09:00)
[2019-01-25] MEDS ORDERED: MIDAZOLAM 2 MG/2 ML VIAL IVP ONE (09:32)
[2019-01-25] MEDS ORDERED: PROPOFOL 10 MG/ML 20 ML VIAL IV ONE (10:20)
[2019-01-25] MEDS ORDERED: MIDAZOLAM 2 MG/2 ML VIAL ONE (10:20)
[2019-01-25] MEDS ORDERED: KETOROLAC 30 MG/ML 1 ML VIAL ONE (10:20)
[2019-01-25] MEDS ORDERED: fentaNYL (PF) 50 MCG/ML 2 ML AMP ONE (10:20)
[2019-01-25] MEDS ORDERED: SUCCINYLCHOLINE CHLORIDE 100 MG/5 ML SYR IV ONE (10:20)
--- NOTE | 2019-01-25 10:53 | P.OP ---
Date of Procedure: 01/25/19 Preoperative Diagnosis: Menorrhagia, uterine fibroids Postoperative Diagnosis: Same Procedure(s) Performed: Hysteroscopy, dilation and curettage, endometrial ablation with NovaSure Surgeon: Tara Kim Estimated Blood Loss (ml): 5 IV fluids (ml): 450 Urine output (ml): 150 Pathology: other (Endometrial curettings) Condition: stable Disposition: PACU Indications for Procedure: Heavy menstrual bleeding Operative Findings: Proliferative endometrium Description of Procedure: Patient was seen in the preoperative area and informed consent was obtained once again. Risks were reviewed with patient including but not limited to infection, bleeding, uterine perforation, damage to pelvic structures. Patient states understanding and wishes to proceed. Patient was taken operating suite where general anesthesia was obtained without difficulty by the anesthesia department. She was then prepped and draped in normal sterile fashion in the dorsal lithotomy position urine was noted to be leaking out of the urethra spontaneously. The bladder was then drained under sterile technique with a red rubber catheter 150 mL of clear yellow urine was noted. The weighted speculum posterior vaginal vault intralipids cervix is visualized and grasped with a single-tooth tenaculum and endocervical canal was then dilated to 17-Mongolian. At this time hysteroscope was placed through the cervix and toward the endometrial cavity a proliferative cavity was noted. Hysteroscope was removed and a sharp curettage was performed until gritty texture was noted in all 4 quadrants endometrial cavity. The NovaSure device was then opened and set to the appropriate measurements after the cavity assessment was completed and passed the cycle was allowed to occur at a power 55 for total 96 seconds. Afterwards the NovaSure was removed intact without difficulty. The tooth tenaculum was taken off of the anterior lip the cervix hemostasis was appreciated. All counts were correct 2 patient was taken the recovery room awake and in stable condition.
[2019-01-25 11:03] VITALS: TEMP 97
[2019-01-25 11:49] VITALS: RESP 18
[2019-01-25 12:09] VITALS: BP 124/88; PULSE 63
== END 2019-01-25 12:43 | disposition home or self-care (01) ==
LOC: OR 08:27
PROVIDERS: ATTEND Obstetrics & Gynecology Obstetrics
DX: N92.0 Excessive and frequent menstruation with regular cycle (principal); N85.00 Endometrial hyperplasia, unspecified; D25.9 Leiomyoma of uterus, unspecified; I10 Essential (primary) hypertension; E78.5 Hyperlipidemia, unspecified; E66.9 Obesity, unspecified; Z68.41 Body mass index [BMI] 40.0-44.9, adult; K21.9 Gastro-esophageal reflux disease without esophagitis; Z87.19 Personal history of other diseases of the digestive system; Z87.440 Personal history of urinary (tract) infections; Z86.19 Personal history of other infectious and parasitic diseases; Z87.891 Personal history of nicotine dependence; Z88.5 Allergy status to narcotic agent
CPT/HCPCS: 81025; 58563; J2250; J2405; J3010; J1885; J1100; J0330; J2704; 88305

== ENCOUNTER → 2019-10-05 | Outpatient (CLI) | payer BC ==
[2019-10-05 16:26] LABS: African American GFR (CKD) 96.9 (60.0-200.0); Albumin 4.3 g/dL (3.80-4.90); Albumin/Globulin Ratio 1.72 (1.60-3.17); Anion Gap 5.2 mmol/L (4.00-12.00); BUN/Creat Ratio 13.75 Ratio (12.00-20.00); Calcium 8.9 mg/dL (8.7-10.3); Carbon Dioxide 27.8 mmol/L (21.6-31.8); Chol/HDL Ratio 4.76; Globulin 2.5 g/dL (1.6-3.3); LDL Cholesterol,Calculated 130.4 mg/dL (0.0-131.0); Potassium 4.6 mmol/L (3.5-5.5); Total Bilirubin 0.7 mg/dL (0.2-1.2); Total Protein 6.8 g/dL (6.2-8.2); VLDL Calculation 27.6 mg/dL (5.00-40.00)
== END | disposition home or self-care (01) ==
LOC: LABWHC1 09:00
DX: E78.2 Mixed hyperlipidemia (principal); I10 Essential (primary) hypertension
CPT/HCPCS: 36415; 80053; 80061; 84443

== ENCOUNTER → 2019-10-13 | Outpatient (CLI) | payer BC ==
--- NOTE | 2019-10-15 10:00 | MM ---
Reason for exam: screening (asymptomatic). Last mammogram was performed 1 year ago. History: Excisional biopsy of the right breast, 2012. Benign MG pre op needle loc LT of the left breast, 2012. Physical Findings: A clinical breast exam by your physician is recommended on an annual basis and results should be correlated with mammographic findings. MG Screening Mammo w CAD Bilateral CC and MLO view(s) were taken. Prior study comparison: October 02, 2018, bilateral MG screening mammo w CAD. May 03, 2016, bilateral MG screening mammo w CAD. There are scattered fibroglandular densities. No significant changes when compared with prior studies. ASSESSMENT: Negative, BI-RAD 1 RECOMMENDATION: Routine screening mammogram of both breasts in 1 year.
== END | disposition home or self-care (01) ==
LOC: RADMAMWWP 14:07
PROVIDERS: ATTEND Obstetrics & Gynecology Obstetrics
DX: Z12.31 Encounter for screening mammogram for malignant neoplasm of breast (principal)
CPT/HCPCS: 77067

== ENCOUNTER → 2020-11-10 | Outpatient (CLI) | payer BC | END | disposition home or self-care (01) | LOC: LABWHC1 16:25 | PROVIDERS: ATTEND Nurse Practitioner Family | DX: R50.9 Fever, unspecified (principal) | CPT/HCPCS: U0003; C9803 ==

== ENCOUNTER → 2021-07-03 | Outpatient (CLI) | payer BC ==
--- NOTE | 2021-07-09 11:57 | MM ---
Reason for exam: screening (asymptomatic). Last mammogram was performed 1 year and 9 months ago. History: Excisional biopsy of the right breast, 2013. Benign MG pre op needle loc LT of the left breast, 2012. Physical Findings: A clinical breast exam by your physician is recommended on an annual basis and results should be correlated with mammographic findings. MG Screening Mammo w CAD Bilateral CC and MLO view(s) were taken. Prior study comparison: October 13, 2019, bilateral MG screening mammo w CAD. October 02, 2018, bilateral MG screening mammo w CAD. There are scattered fibroglandular densities. No significant changes when compared with prior studies. ASSESSMENT: Negative, BI-RAD 1 RECOMMENDATION: Routine screening mammogram of both breasts in 1 year.
== END | disposition home or self-care (01) ==
LOC: RADMAMWWP 07:06
PROVIDERS: ATTEND Family Medicine
DX: Z12.31 Encounter for screening mammogram for malignant neoplasm of breast (principal)
CPT/HCPCS: 77067

== ENCOUNTER 2022-10-21 03:59 | Emergency (ER) | payer BC ==
[2022-10-21 04:04] VITALS: BP 183/77; PULSE 69; RESP 18; TEMP 98.1
[2022-10-21] MEDS ORDERED: ACETAMINOPHEN TAB 500 MG TAB PO STA (04:15)
--- NOTE | 2022-10-21 04:20 | ED ---
General Adult HPI - General Chief complaint: Urogenital Stated complaint: blood in urine Time Seen by Provider: 10/21/22 04:05 Source: patient, RN notes reviewed, old records reviewed Mode of arrival: ambulatory Limitations: no limitations - History of Present Illness Initial comments: Patient is a 56-year-old female with no significant past medical history remarkable for hepatitis C that is in remission, hypertension who is not on any medications at home presents emergency Department complaining of red urine. There is concern for blood in her urine. No history of this. Is endorsing some mild suprapubic discomfort. Denies any dysuria. Denies any vaginal discharge or bleeding. Denies any diarrhea or constipation. His no nausea or vomiting. No other acute complaints at this time. No history of kidney stones. No chest pain or shortness of breath. Patient is under more stress lately because her recently last week. She is not on blood thinners. Presents today for further evaluation. - Related Data Home Medications Medication Instructions Recorded Confirmed Multivitamins, Thera [Multivitamin 1 tab PO DAILY 01/20/19 01/25/19 (formulary)] Previous Rx's Medication Instructions Recorded Cephalexin [Keflex] 500 mg PO Q12HR 5 Days #10 cap 10/21/22 Allergies Allergy/AdvReac Type Severity Reaction Status Date / Time codeine Allergy headache Verified 10/21/22 04:04 Review of Systems ROS Statement: Those systems with pertinent positive or pertinent negative responses have been documented in the HPI. Review of Systems: CONST: Denies fever EYES: Denies blurry vision ENT: Denies nasal congestion C/V: Denies Chest pain RESP: Denies shortness of breath GI: Denies abdominal pain : Endorses hematuria SKIN: Denies rash. MSK: Denies joint pain. NEURO: Denies headache ROS Other: All systems not noted in ROS Statement are negative. Past Medical History Past Medical History: Hyperlipidemia, Hypertension, Liver Disease Additional Past Medical History / Comment(s): Hep C-treated in 2001 and in remission, past hx of HTN/hyperlipidemia but improved and taken off RXs, ectopic with surgery. History of Any Multi-Drug Resistant Organisms: None Reported Past Surgical History: Uterine Ablation Additional Past Surgical History / Comment(s): L oophorectomy Past Anesthesia/Blood Transfusion Reactions: No Reported Reaction Past Psychological History: No Psychological Hx Reported Smoking Status: Never smoker Past Alcohol Use History: None Reported Past Drug Use History: None Reported - Past Family History Father Family Medical History: Coronary Artery Disease (CAD), Myocardial Infarction (RI) Additional Family Medical History / Comment(s): Father has had 2 MIs and is 73 yrs old. Mother History Unknown: Yes Family Medical History: No Reported History Additional Family Medical History / Comment(s): Patient states that her mother is alive but she does not know any of her medical history. Brother(s) Additional Family Medical History / Comment(s): Patient has one half-brother with no major medical problems. Patient has one half-sister with Angelman syndrome. Patient has one child. General Exam - General Exam Comments Initial Comments: General: Appears in no acute distress. Resting comfortably on the stretcher in no obvious distress. HEAD: Normal with no signs of head trauma. EYES: EOMI ENT: Hearing grossly intact, normal oropharynx. RESPIRATORY: Clear breath sounds bilaterally. No wheezes, rales, or rhonchi. C/V: Regular rate and rhythm. S1 and S2 auscultated. Peripheral pulses 2+ intact. ABD: Abdomen is soft, nondistended. Very mild tenderness palpation in the suprapubic region. No guarding. No point tenderness. No peritoneal signs. No rebound tenderness. No CVA tenderness to percussion. EXT: No obvious deformity. SKIN: No rashes or lesions observed on exposed skin. NEURO: Alert and oriented 4. Limitations: no limitations Course Vital Signs 10/21/22 04:01 Temperature 98.1 F Pulse Rate 69 Respiratory 18 Rate Blood Pressure 183/77 O2 Sat by Pulse 96 Oximetry Medical Decision Making - Medical Decision Making Based on the patient's presentation and physical exam, she is presenting with mild suprapubic discomfort as well as hematuria. His acute onset. We will obtain basic labs as well as urinalysis. She'll be given Tylenol for her mild discomfort. She was in agreement this plan. Vital signs within acceptable limits. Patient's imaging studies are remarkable for a urinalysis is concerning for a UTI but can also be a contaminated catch. There is enlargement of blood present. Remainder the labs are unremarkable including normal coags as well as hemoglobin. On reevaluation, I did discuss with the patient that I would like to obtain a CT abdomen and pelvis considering her pain as well as the possibility of having a kidney stone. She was in agreement this plan. CT abdomen and pelvis as interpreted by myself reveals no evidence of stone or nephrolithiasis. At this time patient would like to leave. I do believe this is reasonable and she will be started on antibiotics and given a prescription for antibiotics for her UTI. She was in agreement this plan. Recommended close follow-up with her PCP. I will provide the patient with a prescription for Keflex. I instructed the patient to follow up with their PCP in the next 1-3 days. I explained that the patient should return to the emergency department if they experience any worsening symptoms. Strict return precautions were discussed with the patient. The patient expressed understanding of these instructions. I answered all questions that the patient had. The patient was discharged home in good condition with their prescriptions and follow up information. Patient was contacted with her CT imaging results and she expressed understanding. - Lab Data Result diagrams: 10/21/22 04:35 10/21/22 04:35 Lab Results 10/21/22 10/21/22 10/21/22 Range/Units 04:17 04:35 04:35 WBC 7.9 (3.8-10.6) k/uL RBC 4.57 (3.80-5.40) m/uL Hgb 14.9 (11.4-16.0) gm/dL Hct 42.4 (34.0-46.0) % MCV 92.9 (80.0-100.0) fL MCH 32.6 (25.0-35.0) pg MCHC 35.1 (31.0-37.0) g/dL RDW 13.3 (11.5-15.5) % Plt Count 224 (150-450) k/uL MPV 8.7 Neutrophils % 68 % Lymphocytes % 23 % Monocytes % 4 % Eosinophils % 2 % Basophils % 0 % Neutrophils # 5.3 (1.3-7.7) k/uL Lymphocytes # 1.8 (1.0-4.8) k/uL Monocytes # 0.4 (0-1.0) k/uL Eosinophils # 0.2 (0-0.7) k/uL Basophils # 0.0 (0-0.2) k/uL PT 10.8 (9.0-12.0) sec INR 1.0 (<1.2) APTT 26.8 (22.0-30.0) sec Sodium (137-145) mmol/L Potassium (3.5-5.1) mmol/L Chloride (98-107) mmol/L Carbon Dioxide (22-30) mmol/L Anion Gap mmol/L BUN (7-17) mg/dL Creatinine (0.52-1.04) mg/dL Est GFR (CKD-EPI)AfAm (>60 ml/min/1.73 sqM) Est GFR (CKD-EPI)NonAf (>60 ml/min/1.73 sqM) Glucose (74-99) mg/dL Calcium (8.4-10.2) mg/dL Urine Color Red Urine Appearance Cloudy H (Clear) Urine pH 5.5 (5.0-8.0) Ur Specific Tuttle 1.018 (1.001-1.035) Urine Protein 1+ H (Negative) Urine Glucose (UA) Negative (Negative) Urine Ketones Trace H (Negative) Urine Blood Large H (Negative) Urine Nitrite Negative (Negative) Urine Bilirubin Negative (Negative) Urine Urobilinogen <2.0 (<2.0) mg/dL Ur Leukocyte Esterase Moderate H (Negative) Urine RBC >182 H (0-5) /hpf Urine WBC >182 H (0-5) /hpf Urine WBC Clumps Many H (None) /hpf Ur Squamous Epith Cells 15 H (0-4) /hpf Urine Bacteria Occasional H (None) /hpf 10/21/22 Range/Units 04:35 WBC (3.8-10.6) k/uL RBC (3.80-5.40) m/uL Hgb (11.4-16.0) gm/dL Hct (34.0-46.0) % MCV (80.0-100.0) fL MCH (25.0-35.0) pg MCHC (31.0-37.0) g/dL RDW (11.5-15.5) % Plt Count (150-450) k/uL MPV Neutrophils % % Lymphocytes % % Monocytes % % Eosinophils % % Basophils % % Neutrophils # (1.3-7.7) k/uL Lymphocytes # (1.0-4.8) k/uL Monocytes # (0-1.0) k/uL Eosinophils # (0-0.7) k/uL Basophils # (0-0.2) k/uL PT (9.0-12.0) sec INR (<1.2) APTT (22.0-30.0) sec Sodium 138 (137-145) mmol/L Potassium 4.5 (3.5-5.1) mmol/L Chloride 104 (98-107) mmol/L Carbon Dioxide 28 (22-30) mmol/L Anion Gap 6 mmol/L BUN 16 (7-17) mg/dL Creatinine 0.79 (0.52-1.04) mg/dL Est GFR (CKD-EPI)AfAm >90 (>60 ml/min/1.73 sqM) Est GFR (CKD-EPI)NonAf 84 (>60 ml/min/1.73 sqM) Glucose 111 H (74-99) mg/dL Calcium 10.1 (8.4-10.2) mg/dL Urine Color Urine Appearance (Clear) Urine pH (5.0-8.0) Ur Specific Tuttle (1.001-1.035) Urine Protein (Negative) Urine Glucose (UA) (Negative) Urine Ketones (Negative) Urine Blood (Negative) Urine Nitrite (Negative) Urine Bilirubin (Negative) Urine Urobilinogen (<2.0) mg/dL Ur Leukocyte Esterase (Negative) Urine RBC (0-5) /hpf Urine WBC (0-5) /hpf Urine WBC Clumps (None) /hpf Ur Squamous Epith Cells (0-4) /hpf Urine Bacteria (None) /hpf Disposition Clinical Impression: Hematuria, UTI (urinary tract infection) Disposition: HOME SELF-CARE Condition: Good Instructions (If sedation given, give patient instructions): Urinary Tract Infection in Women (ED) Prescriptions: Cephalexin [Keflex] 500 mg PO Q12HR 5 Days #10 cap Is patient prescribed a controlled substance at d/c from ED?: No Referrals: None,Stated [REFERRING] - 1-2 days Time of Disposition: 07:10
[2022-10-21 04:33] LABS: Appearance,Urine Cloudy (Clear); Bacteria,Urine Occasional /hpf; Bilirubin,Urine Negative (Negative); Blood,Urine Large (Negative); Color,Urine Red; Glucose,Urine (UA) Negative (Negative); Ketones,Urine Trace (Negative); Leukocyte Esterase,Urine Moderate (Negative); Nitrite,Urine Negative (Negative); PH, Urine 5.5 (5.0-8.0); Protein,Urine 1+ (Negative); RBC,Urine >182 /hpf (0-5); Specific Gravity,Urine 1.018 (1.001-1.035); Squamous Epithelial Cell,Urine 15 /hpf (0-4); Urobilinogen,Urine <2.0 mg/dL (<2.0); WBC,Urine >182 /hpf (0-5)
[2022-10-21 04:40] LABS: Basophils % (A) 0 %; Eosinophils # (A) 0.2 k/uL (0-0.7); Eosinophils % (A) 2 %; HCT 42.4 % (34.0-46.0); HGB 14.9 gm/dL (11.4-16.0); Lymphocytes # (A) 1.8 k/uL (1.0-4.8); Lymphocytes % (A) 23 %; MCH 32.6 pg (25.0-35.0); MCHC 35.1 g/dL (31.0-37.0); MCV 92.9 fL (80.0-100.0); Mean Platelet Volume 8.7; Monocytes # (A) 0.4 k/uL (0-1.0); Monocytes % (A) 4 %; Neutrophils # (A) 5.3 k/uL (1.3-7.7); Neutrophils % (A) 68 %; Platelet Count 224 k/uL (150-450); RBC 4.57 m/uL (3.80-5.40); RDW 13.3 % (11.5-15.5); WBC 7.9 k/uL (3.8-10.6)
[2022-10-21 04:49] LABS: Partial Thromboplastin Time 26.8 sec (22.0-30.0); Prothrombin Time 10.8 sec (9.0-12.0)
[2022-10-21 04:57] LABS: African American GFR (CKD) >90 (>60 ml/min/1.73 sqM); Anion Gap 6 mmol/L; Blood Urea Nitrogen 16 mg/dL (7-17); Calcium 10.1 mg/dL (8.4-10.2); Carbon Dioxide 28 mmol/L (22-30); Chloride 104 mmol/L (98-107); Glucose 111 mg/dL (74-99); Non-African American GFR(CKD) 84 (>60 ml/min/1.73 sqM); Potassium 4.5 mmol/L (3.5-5.1); Sodium 138 mmol/L (137-145)
[2022-10-21] MEDS ORDERED: CEPHALEXIN 500 MG CAP PO STA (07:17)
--- NOTE | 2022-10-21 07:41 | CT ---
EXAM: CT Abdomen and Pelvis Without Intravenous Contrast CLINICAL HISTORY: ITS.REASON CT Reason: blood in urine TECHNIQUE: Axial computed tomography images of the abdomen and pelvis without intravenous contrast. CTDI is 21.5 mGy and DLP is 1165.4 mGy-cm. This CT exam was performed using one or more of the following dose reduction techniques: automated exposure control, adjustment of the mA and/or kV according to patient size, and/or use of iterative reconstruction technique. COMPARISON: 06/05/2017 FINDINGS: Lung bases: Unremarkable. No mass. No consolidation. ABDOMEN: Liver: Diffusely hypoattenuating liver. Gallbladder and bile ducts: Unremarkable. No calcified stones. No ductal dilation. Pancreas: Unremarkable. No ductal dilation. Spleen: Unremarkable. No splenomegaly. Adrenals: Unremarkable. No mass. Kidneys and ureters: Unremarkable. No obstructing stones. No hydronephrosis. Stomach and bowel: Sigmoid colonic diverticulosis. No obstruction. No mucosal thickening. PELVIS: Appendix: Surgically absent. Bladder: Unremarkable. No stones. Reproductive: Unremarkable as visualized. ABDOMEN and PELVIS: Intraperitoneal space: Unremarkable. No free air. No significant fluid collection. Bones/joints: No acute fracture. No dislocation. Soft tissues: Unremarkable. Vasculature: Unremarkable. No abdominal aortic aneurysm. Lymph nodes: Unremarkable. No enlarged lymph nodes. IMPRESSION: 1. Sigmoid colonic diverticulosis with no evidence of diverticulitis. 2. Hepatic steatosis.
== END 2022-10-21 07:31 | disposition home or self-care (01) ==
LOC: EC 03:59
DX: R31.9 Hematuria, unspecified (principal); N39.0 Urinary tract infection, site not specified; I10 Essential (primary) hypertension; Z88.5 Allergy status to narcotic agent
CPT/HCPCS: 36415; 74176; 80048; 81001; 85025; 85610; 85730; 87086; 99284

== ENCOUNTER → 2022-11-06 | Outpatient (CLI) | payer BC ==
--- NOTE | 2022-11-07 18:51 | MM ---
Reason for Exam: Screening (asymptomatic). Last mammogram was performed 1 year(s) and 4 month(s) ago. Patient History: Menarche at age 10. First Full-Term at age 28. Postmenopausal. Previous chest radiation therapy. 2012, Benign Core Biopsy on the left side. 2012, Excisional Biopsy on the Right side. Risk Values: Judi 5 year model risk: 2.4%. NCI Lifetime model risk: 13.6%. Prior Study Comparison: 10/02/2018 Bilateral Screening Mammogram, [facility]. 10/13/2019 Bilateral Screening Mammogram, [facility]. 07/03/2021 Bilateral Screening Mammogram, [facility]. Tissue Density: The breast tissue is heterogeneously dense. This may lower the sensitivity of mammography. Findings: Analyzed By CAD. Areas of asymmetric density are unchanged. There is no suspicious group of microcalcifications or new suspicious mass in either breast. Overall Assessment: Benign, BI-RAD 2 Management: Screening Mammogram of both breasts in 1 year. 1. Patient should continue monthly self breast exams. 2. A clinical breast exam by your physician is recommended on an annual basis. 3. This exam should not preclude additional follow-up of suspicious palpable abnormalities. Electronically signed and approved by: Smita Browning M.D. Radiologist
== END | disposition home or self-care (01) ==
LOC: RADMAMWWP 16:18
PROVIDERS: ATTEND Family Medicine
DX: Z12.31 Encounter for screening mammogram for malignant neoplasm of breast (principal); Z78.0 Asymptomatic menopausal state; Z92.3 Personal history of irradiation; Z98.890 Other specified postprocedural states
CPT/HCPCS: 77067

== ENCOUNTER → 2023-03-17 | Outpatient (CLI) | payer MEDICAID ==
[2023-03-17 16:17] LABS: Basophils # (A) 0.02 X 10*3/uL (0.00-0.10); Basophils % (A) 0.3 %; Eosinophils # (A) 0.07 X 10*3/uL (0.04-0.35); Eosinophils % (A) 1.2 %; HCT 44.9 % (37.2-46.3); HGB 14.3 g/dL (12.0-15.0); Immature Grans, Automated 0.2 %; Lymphocytes # (A) 2.16 X 10*3/uL (0.90-5.00); Lymphocytes % (A) 37.3 %; MCH 31.3 pg (27.0-32.0); MCHC 31.8 g/dL (32.0-37.0); MCV 98.2 fL (80.0-97.0); Mean Platelet Volume 10.8 fL (9.5-12.2); Monocytes % (A) 8.6 %; NRBC Per 100 WBC 0 /100 WBCS (0.0-0.0); Neutrophils # (A) 3.03 X 10*3/uL (1.80-7.70); Neutrophils % (A) 52.4 %; Platelet Count 242 X 10*3/uL (140-440); RBC 4.57 X 10*6/uL (4.10-5.20); RDW 12.6 % (11.5-14.5); WBC 5.79 X 10*3/uL (4.50-10.00)
== END | disposition home or self-care (01) ==
LOC: LABPAT 08:30
PROVIDERS: ATTEND Obstetrics & Gynecology Obstetrics
DX: Z01.812 Encounter for preprocedural laboratory examination (principal); N95.0 Postmenopausal bleeding; R93.89 Abnormal findings on diagnostic imaging of other specified body structures
CPT/HCPCS: 85025

== ENCOUNTER → 2023-03-19 | Outpatient (CLI) | payer MEDICAID | END | disposition home or self-care (01) | LOC: LABPAT 10:32 | PROVIDERS: ATTEND Obstetrics & Gynecology Obstetrics | DX: Z01.812 Encounter for preprocedural laboratory examination (principal); R94.31 Abnormal electrocardiogram [ECG] [EKG] | CPT/HCPCS: 93005 ==

== ENCOUNTER → 2023-03-25 | Day surgery (SDC) | payer BC, MEDICAID ==
[2023-03-19 09:14] VITALS: BMI 43.2
[~2023-03-25] MED LIST changes: -DEXAMETHASONE SOD PHOSPHATE 10 MG/ML 1 ML VIAL IV ONE; +DEXAMETHASONE SOD PHOSPHATE 4 MG/ML 1 ML VIAL IV ONE; +HYDROmorphone 0.5 MG/0.5 ML SYRINGE IVP PRN; +KETOROLAC 15 MG/ML 1 ML VIAL ONE; -LIDOCAINE 1% 20 ML VIAL (10MG/ML) FOR IV START INTRADERMA PRN; +LIDOCAINE 2% INJ 20 MG/ML (2 ML VIAL) ONE; -MIDAZOLAM (PF) 2 MG/2 ML VIAL IV PRN; +MIDAZOLAM 2 MG/2 ML VIAL ONE; +ONDANSETRON 4 MG/2 ML VIAL IVP ONE; +PHENYLEPHRINE-0.9% NACL SYG 1,000 MCG/10 ML SYRINGE ONE; +PROPOFOL 10 MG/ML 20 ML VIAL IV ONE; +Pre Op ABX Message 1 EACH MISC MISCELLANE ONE; +SUCCINYLCHOLINE CHLORIDE 200 MG/10 ML VIAL IV ONE; -ceFAZolin IN SWFI 2 GM/20 ML SYRINGE IVP ONE; -fentaNYL (PF) 50 MCG/ML 2 ML AMP IV PRN; +fentaNYL (PF) 50 MCG/ML 2 ML AMP ONE
--- NOTE | 2023-03-25 09:21 | P.OP ---
Date of Procedure: 03/25/23 Preoperative Diagnosis: Postmenopausal bleeding Postoperative Diagnosis: Same Procedure(s) Performed: Hysteroscopy, dilation and curettage Anesthesia: local Surgeon: Tara Kim Estimated Blood Loss (ml): 5 Urine output (ml): 50 Pathology: other (Endometrial curettings) Condition: stable Disposition: PACU Indications for Procedure: Postmenopausal bleeding Operative Findings: Thickened endometrium Description of Procedure: Patient was taken back to the operating suite where general anesthesia was obtained without difficulty by the anesthesia department. She was prepped and draped in normal sterile fashion in the dorsal lithotomy position. Red rubber catheter was used to drain the bladder clear yellow urine. A weighted speculum posterior vaginal vault, the anterior lip of the cervix is visualized and grasped with a single-tooth tenaculum. The endocervical canal was then serially dilated. Hysteroscope was placed through the cervix and the thickened anterior uterine wall was appreciated. Pictures were taken and the hysteroscope was removed. A sharp curettage was then performed this specimen was then sent to pathology for analysis. The single-tooth tenaculum then taken off of the anterior lip of the cervix, hemostasis was appreciated. All instruments were removed from the patient's vaginal vault. All counts were noted to be correct 2 at the end of the procedure. Patient tolerated procedure well and was taken the recovery room awake in stable condition.
[2023-03-25 09:22] VITALS: TEMP 97.3
[2023-03-25 09:26] VITALS: RESP 16
[2023-03-25 10:11] VITALS: BP 125/74; PULSE 74
== END | disposition home or self-care (01) ==
LOC: OR 07:09
PROVIDERS: ATTEND Obstetrics & Gynecology Obstetrics
DX: N85.8 Other specified noninflammatory disorders of uterus (principal); I10 Essential (primary) hypertension; E78.5 Hyperlipidemia, unspecified; B19.20 Unspecified viral hepatitis C without hepatic coma; Z88.5 Allergy status to narcotic agent; Z79.1 Long term (current) use of non-steroidal anti-inflammatories (NSAID); Z98.890 Other specified postprocedural states
CPT/HCPCS: 58558; 88305; J2250; J0330; J1100; J2405; J3010; J1885; J2370; J2704; J2001

== ENCOUNTER → 2023-08-05 | Outpatient (CLI) | payer MEDICAID | END | disposition home or self-care (01) | LOC: LABWHC1 16:23 | PROVIDERS: ATTEND Obstetrics & Gynecology Obstetrics | DX: Z53.9 Procedure and treatment not carried out, unspecified reason (principal) ==

== ENCOUNTER 2023-08-11 07:02 | Day surgery (SDC) | payer MEDICAID ==
[2023-08-05 17:58] LABS: Basophils % (A) 0 %; Eosinophils # (A) 0.1 k/uL (0-0.7); Eosinophils % (A) 2 %; HGB 15.3 gm/dL (11.4-16.0); Lymphocytes # (A) 2.4 k/uL (1.0-4.8); Lymphocytes % (A) 38 %; MCH 31.7 pg (25.0-35.0); MCHC 33.2 g/dL (31.0-37.0); MCV 95.3 fL (80.0-100.0); Mean Platelet Volume 8.1; Monocytes # (A) 0.4 k/uL (0-1.0); Monocytes % (A) 6 %; Neutrophils # (A) 3.4 k/uL (1.3-7.7); Neutrophils % (A) 53 %; Platelet Count 233 k/uL (150-450); RBC 4.82 m/uL (3.80-5.40); RDW 13.1 % (11.5-15.5); WBC 6.4 k/uL (3.8-10.6)
[2023-08-06 00:05] LABS: Potassium 4.4 mmol/L (3.5-5.1)
[2023-08-06 02:13] LABS: C Reactive Protein, High Sens 9.7 mg/L (0.000-3.000)
[2023-08-08 10:46] VITALS: BMI 43.2
[~2023-08-11 07:02] MED LIST changes: -DEXAMETHASONE SOD PHOSPHATE 4 MG/ML 1 ML VIAL IV ONE; -KETOROLAC 15 MG/ML 1 ML VIAL ONE; +LIDOCAINE 1% (10MG/ML) FOR IV START INTRADERMA PRN; -LIDOCAINE 2% INJ 20 MG/ML (2 ML VIAL) ONE; +MIDAZOLAM 2 MG/2 ML VIAL IV PRN; -MIDAZOLAM 2 MG/2 ML VIAL ONE; -ONDANSETRON 4 MG/2 ML VIAL IVP ONE; -PHENYLEPHRINE-0.9% NACL SYG 1,000 MCG/10 ML SYRINGE ONE; -PROPOFOL 10 MG/ML 20 ML VIAL IV ONE; -Pre Op ABX Message 1 EACH MISC MISCELLANE ONE; -SUCCINYLCHOLINE CHLORIDE 200 MG/10 ML VIAL IV ONE; -fentaNYL (PF) 50 MCG/ML 2 ML AMP ONE
[2023-08-11] MEDS: DEXAMETHASONE SOD PHOSPHATE 4 MG/ML 1 ML VIAL IV ONE ×2 (08:10→13:26)
[2023-08-11] MEDS: ONDANSETRON 4 MG/2 ML VIAL IVP ONE ×2 (08:11→13:25)
--- NOTE | 2023-08-11 08:53 | P.HPOB ---
History of Present Illness H&P Date: 08/11/23 Chief Complaint: Postmenopausal bleeding, failed endometrial ablation, enlarged uterus This is a 57-year-old G 6 para 1051 that presents for scheduled robotic cyst vaginal hysterectomy with bilateral salpingo-oophorectomy, diagnostic cystoscopy possible open to complete procedure. Patient has a history significant for postmenopausal bleeding despite endometrial ablation and known enlarged uterus, measurements of 10 x 6 x 5. Patient had continued bleeding with negative pathology from hysteroscopy dilation and curettage in March 2023. Patient desires definitive treatment with hysterectomy and bilateral salpingo- oophorectomy given continued postmenopausal bleeding. Review of Systems Constitutional: Denies chills, Denies fatigue, Denies fever Ears, nose, mouth and throat: Denies headache Cardiovascular: Denies leg edema Respiratory: Denies dyspnea Gastrointestinal: Denies constipation, Denies diarrhea, Denies nausea, Denies vomiting Menstruation: Reports as per HPI, Reports postmenopausal Past Medical History Past Medical History: Hyperlipidemia, Hypertension, Liver Disease Additional Past Medical History / Comment(s): Hep C-treated in 2001 and in remission, past hx of HTN/hyperlipidemia but improved and taken off RXs, PMB- IR REG, HEAVY -SINCE OCT 2022 History of Any Multi-Drug Resistant Organisms: None Reported Past Surgical History: Uterine Ablation Additional Past Surgical History / Comment(s): L oophorectomy, ectopic with surgery. D & C, COLONOSCOPY Past Anesthesia/Blood Transfusion Reactions: No Reported Reaction Smoking Status: Former smoker - Past Family History Father Family Medical History: Coronary Artery Disease (CAD), Myocardial Infarction (NM) Additional Family Medical History / Comment(s): Father has had 2 NM's. Mother History Unknown: Yes Family Medical History: No Reported History Additional Family Medical History / Comment(s): Patient states that her mother is alive but she does not know any of her medical history. Brother(s) Additional Family Medical History / Comment(s): Patient has one half-brother with no major medical problems. Patient has one half-sister with Angelman syndrome. Patient has one son. Medications and Allergies Home Medications Medication Instructions Recorded Confirmed Type Ibuprofen [Motrin Ib] 800 mg PO Q8H PRN 03/19/23 08/11/23 History Rosuvastatin [Crestor] 5 mg PO HS 03/19/23 08/11/23 History Allergies Allergy/AdvReac Type Severity Reaction Status Date / Time codeine AdvReac HEADACHE Verified 08/11/23 08:01 Exam Osteopathic Statement: *. No significant issues noted on an osteopathic structural exam other than those noted in the History and Physical/Consult. Vital Signs Temp Pulse Resp BP Pulse Ox 08/11/23 07:43 98.0 F 83 20 125/60 93 L Intake and Output 08/10/23 08/11/23 08/11/23 22:59 06:59 14:59 Other: Weight 108.9 kg Targeted physical exam is performed in this date and fowl blood tester a well-nourished well-developed non female in no acute distress, breathing is noted to be nonlabored, heart has a regular rate and rhythm, abdomen is soft and nontender, genitourinary exam external genitalia is noted to be normal for age no discharge or lesions are present. The vaginal mucosa centimeters and well rugated no discharges appreciated. The bladder is nontender to palpation. The cervix is healthy in appearance with no lesions, the uterus is slightly enlarged at 10 cm. No adnexal masses are appreciated. Results Result Diagrams: 08/05/23 17:13 08/05/23 17:13 Assessment and Plan (1) PMB (postmenopausal bleeding) Narrative/Plan: Negative pathology on hysteroscopy dilation and curettage in March 2023 Current Visit: Yes Status: Acute Code(s): N95.0 - POSTMENOPAUSAL BLEEDING SNOMED Code(s): 22940914 (2) Enlarged uterus Current Visit: Yes Status: Acute Code(s): N85.2 - HYPERTROPHY OF UTERUS SNOMED Code(s): 016606998 Plan: 57-year-old G6 para 1051 presents for robotic cyst vaginal hysterectomy with bilateral salpingo-for ectomy, diagnostic cystoscopy. Patient has a history of postmenopausal bleeding. Negative pathology on hysteroscopy D&C. Patient elects definitive treatment with hysterectomy and bilateral salpingo-oophorectom y. Patient does have a history of an endometrial ablation, she continued to have bleeding status post ablation. Surgery is reviewed with patient in detail and questions are answered. Risks are reviewed including but not limited to infection, bleeding, damage to bladder, bowel, ureteric injury. Patient states understanding and wishes to proceed. We'll proceed to the operating suite.
[2023-08-11] MEDS ORDERED: ROCURONIUM 10 MG/ML (5 ML VIAL) IV ONE (09:12)
[2023-08-11] MEDS ORDERED: fentaNYL (PF) 50 MCG/ML 2 ML AMP ONE (09:12)
[2023-08-11] MEDS ORDERED: HYDROmorphone (PF) 1 MG/ML ONE (09:12)
[2023-08-11] MEDS ORDERED: GLYCOPYRROLATE 0.2 MG/ML 2 ML VIAL ONE (09:12)
[2023-08-11] MEDS ORDERED: SUCCINYLCHOLINE CHLORIDE 200 MG/10 ML VIAL IV ONE (09:12)
[2023-08-11] MEDS ORDERED: MIDAZOLAM 2 MG/2 ML VIAL ONE (09:12)
[2023-08-11] MEDS ORDERED: NEOSTIGMINE 1 MG/ML 10 ML VIAL ONE (09:12)
[2023-08-11] MEDS ORDERED: LIDOCAINE 2% INJ 20 MG/ML (2 ML VIAL) ONE (09:12)
[2023-08-11] MEDS ORDERED: PROPOFOL 10 MG/ML 20 ML VIAL IV ONE (09:12)
[2023-08-11] MEDS ORDERED: BUPIVACAINE (PF) 0.25% 30 ML VIAL SQ ONE ×2 (10:20)
[2023-08-11] MEDS ORDERED: ACETAMINOPHEN IV (For NPO) 1,000 MG in EMPTY BAG 1 BAG IVPB ONE (11:53)
[2023-08-11] MEDS ORDERED: SIMETHICONE 80 MG CHEWABLE PO PRN (11:53)
[2023-08-11] MEDS ORDERED: Acetaminophen-Codeine 300-30mg TAB PO PRN ×2 (11:53)
[2023-08-11] MEDS ORDERED: LACTATED RINGERS 1,000 ML IV SCH (12:00)
[2023-08-11] MEDS ORDERED: IBUPROFEN IV 800 MG in SODIUM CHLORIDE 0.9% 250 ML IV ONE (12:00)
--- NOTE | 2023-08-11 12:03 | P.OP ---
Date of Procedure: 08/11/23 Preoperative Diagnosis: enlarged uterus, failed EA, PMB Postoperative Diagnosis: same + omental adhesions Procedure(s) Performed: Robotic-assisted vaginal hysterotomy, bilateral salpingo-ophectomy, diagnostic cystoscopy, adhesio lysis Anesthesia: LJ Surgeon: Tara Kim Basting Puller #1: Mikala Bowens Estimated Blood Loss (ml): 25 IV fluids (ml): 700 Urine output (ml): 300 Pathology: other (uterus, cervix, bilateral salpingoophorectomy) Condition: stable Disposition: PACU Indications for Procedure: Postmenopausal bleeding, failed endometrial ablation, and enlarged uterus Operative Findings: Omental adhesions to the anterior abdominal wall, enlarged globular uterus normal ovaries bilaterally Description of Procedure: Patient was taken back to the operating suite where general anesthesia was obtained without difficulty by the anesthesia department. She was prepped and draped in normal sterile fashion in the dorsal lithotomy position. A Espino catheter was then placed under sterile technique. Weighted speculum posterior vaginal vault the anterior lip of the cervix is visualized and grasped with a single-tooth tenaculum. The endocervical canal was then serially dilated and a V care uterine made there was advanced into the uterus as a means to manipulate the uterus throughout the procedure. The cervical cap was then placed snugly against the cervix and all instruments were removed from the patient's vaginal vault. Attention was then turned the patient's abdomen where approximately 3 fingerbreadths above the umbilicus a small skin incision is made. Through this incision the Veress needles placed. Once the Veress needles deemed to be in the proper position with a drop of CO2 pressure with insufflation of CO2 gas CO2 ins ufflation was allowed to occur. At this time a 8 mm trocar and sleeve is placed through the skin incision with a news agent scope in place. The above-noted findings were visualized. The additional port sites are then placed 10 cm lateral and 37 m inferior to midline port these are operative ports placed under direct visualization. In the left upper quadrant a 10 mm trocar and sleeve is placed under direct visualization. At this time the da Ray robot was docked docked in the usual fashion. In the right operative arm the monopolar scissors is placed, and the left operative arm the bipolar forceps is placed. Attention was then turned to the patient's midline omental adhesion which was taken down sharply and bluntly. Hemostasis was noted throughout. The uterus is elevated the left ovary was visualized with a simple appearing follicular cyst. The interval pelvic ligament was visualized coagulated and transected. This continued through the broad ligament, toward the round which was coagulated and transected. Hemostasis was noted. The bladder flap from the left was then created using sharp and blunt dissection. The ascending branch the uterine artery was visualized coagulated and transected. Attention was then turned the patient's right infundibulopelvic ligament which was visualized coagulated and transected. This continued through the broad ligament and toward the round ligament which was coagulated and transected. The bladder flap from the right was then created using sharp and blunt dissection. At this time a Ray-Owen was introduced into the abdomen to push the bladder further away from the operating field. The Ray-Owen was removed after dissection was complete. The ascending branch of the uterine artery from the right was visualized coagulated and transected. At this time the only remaining attachment was a vaginal attachment therefore lithotomy incision was made no cervical vaginal fashion. The uterus was delivered through the vaginal opening with the right fallopian tube and ovary and left ovary. The pelvis then copiously irrigated. The vaginal cuff was closed with [id number] sutures of 0 Vicryl. Hemostasis was noted after closure. 5 sutures were used to obtain closure. The pelvis was then irrigated once again hemostasis was noted. The omental adhesions were noted to be hemostatic but Surgicel powder was placed along the dissection plane. The vaginal cuff was inspected hemostasis was noted. At this time all inserts removed from the patient's abdomen. Attention was then turned the patient's Espino catheter which was removed without difficulty. Clear yellow urine was noted in the Espino catheter tubing. A cystoscope was performed. The cystoscope was placed through the urethra and toward the bladder. The bladder was noted to be intact upon complete survey. Both ureteral orifice were noted to be spilling clear yellow urine. Cystoscope was removed and the Espino catheter was replaced. Attention was then turned the patient's abdomen where the skin incisions were closed with 4-0 Vicryl in a septic fashion. Steri-Strips and sterile dressings were applied. All counts were noted be correct 2 at the procedure. Patient tolerated procedure well and was taken the recovery room awake in stable condition.
[2023-08-11 15:19] VITALS: TEMP 98.2
[2023-08-11] MEDS: IBUPROFEN 600 MG TAB PO PRN (20:36)
[2023-08-11] MEDS ORDERED: SENNOSIDES-DOCUSATE SODIUM 1 EACH TAB PO SCH (21:00)
[2023-08-12 06:18] LABS: Basophils % (A) 0 %; Eosinophils % (A) 0 %; HCT 43.4 % (34.0-46.0); HGB 14.1 gm/dL (11.4-16.0); Lymphocytes % (A) 18 %; MCH 31.7 pg (25.0-35.0); MCHC 32.4 g/dL (31.0-37.0); MCV 97.6 fL (80.0-100.0); Mean Platelet Volume 8.4; Monocytes # (A) 0.7 k/uL (0-1.0); Monocytes % (A) 6 %; Neutrophils % (A) 74 %; Platelet Count 246 k/uL (150-450); RBC 4.44 m/uL (3.80-5.40); RDW 13.1 % (11.5-15.5); WBC 10.7 k/uL (3.8-10.6)
[2023-08-12] MEDS: IBUPROFEN 600 MG TAB PO PRN (07:09)
[2023-08-12 08:10] VITALS: BP 149/76; PULSE 57; RESP 16
[2023-08-12] MEDS ORDERED: ACETAMINOPHEN TAB 325 MG TAB PO PRN (11:54)
--- NOTE | 2023-08-12 11:56 | P.DS ---
Providers Date of admission: 08/11/2023 Expected date of discharge: 08/12/23 Attending physician: Tara Kim Primary care physician: Stated None - Discharge Diagnosis(es) (1) PMB (postmenopausal bleeding) Status: Acute (2) Enlarged uterus Status: Acute (3) S/P hysterectomy Status: Acute Hospital Course: This is a 57 yo female that presented yesterday 08/11 for scheduled robotic assist hysterectomy with bilateral salpingoophorectomy, diagnostic cystoscopy. she has a history of an endometrial ablation done for HMB. She has noted continued bleeding. she underwent H DC in march for PMB and negative pathoogy was obtained. she elects definitive treatment given her continued bleeding. she had an US completed with noted enlarged uterus at 10cm. For full details please see the dictated history and physical. She was taken back to the operating room and hysterectomy was completed without difficulty. For full detail please see the operative report. She is doing well post operatively on this post op day 1 she is ambulating and voiding without difficulty. she denies vaginal bleeding, noted positive flatus. she is tolerating a regular diet without nausea or vomitting. she states her pain is controlled with Ibuprofen. Patient Condition at Discharge: Good Plan - Discharge Summary Discharge Rx Participant: Yes New Discharge Prescriptions: No Action Ibuprofen [Motrin Ib] 800 mg PO Q8H PRN PRN Reason: Pain Discharge Medication List Ibuprofen [Motrin Ib] 800 mg PO Q8H PRN 03/19/23 [History] Follow up Appointment(s)/Referral(s): Tara Kim DO [Doctor of Osteopathic Medicine] - 2 Weeks Patient Instructions/Handouts: Laparoscopic Hysterectomy (DC), Laparoscopic Hysterectomy (GEN) Activity/Diet/Wound Care/Special Instructions: bleeding precautions reviewed with patient, she is to call for follow up in 2 weeks. otc ibuprofen 600mg q 6 hours for pain. she is to call with any concerns or questions prior to her 2 weeks appointment Discharge Disposition: HOME SELF-CARE
== END 2023-08-12 10:12 | disposition home or self-care (01) ==
LOC: OR 07:02 → 4FBP 11:14 → OR 08-12 10:12
PROVIDERS: ATTEND Obstetrics & Gynecology Obstetrics
DX: D27.1 Benign neoplasm of left ovary (principal); D27.0 Benign neoplasm of right ovary; D26.1 Other benign neoplasm of corpus uteri; N72 Inflammatory disease of cervix uteri; N80.03 Adenomyosis of the uterus; N83.8 Other noninflammatory disorders of ovary, fallopian tube and broad ligament; K66.0 Peritoneal adhesions (postprocedural) (postinfection); I10 Essential (primary) hypertension; E78.5 Hyperlipidemia, unspecified; K76.9 Liver disease, unspecified; Z79.899 Other long term (current) drug therapy; Z82.49 Family history of ischemic heart disease and other diseases of the circulatory system; Z84.89 Family history of other specified conditions; Z88.5 Allergy status to narcotic agent; Z87.891 Personal history of nicotine dependence
CPT/HCPCS: 58552; S2900; 80051; 81025; 82947; 84520; 85025; 86141; 86850; 86900; 86901; 87077; 87086; 87186; 88307

== ENCOUNTER → 2023-11-26 | Outpatient (CLI) | payer MEDICAID ==
--- NOTE | 2023-12-01 15:56 | MM ---
Reason for Exam: Screening (asymptomatic). Last screening mammogram was performed 12 month(s) ago. Patient History: Menarche at age 10. First Full-Term at age 28. Left ovary removed at age 57. Right ovary removed at age 57. Hysterectomy at age 57. Postmenopausal. Previous chest radiation therapy. 2012, Benign Core Biopsy on the left side. 2012, Excisional Biopsy on the Right side. Risk Values: Juid 5 year model risk: 2.5%. NCI Lifetime model risk: 13.3%. Prior Study Comparison: 10/13/2019 Bilateral Screening Mammogram, [facility]. 07/03/2021 Bilateral Screening Mammogram, [facility]. 11/06/2022 Bilateral MG screening mammo w CAD, [facility]. Tissue Density: There are scattered fibroglandular densities. Findings: Analyzed By CAD. There is no suspicious group of microcalcifications or new suspicious mass in either breast. Overall Assessment: Negative, BI-RAD 1 Management: Screening Mammogram of both breasts in 1 year. . Patient should continue monthly self-breast exams. A clinical breast exam by your physician is recommended on an annual basis. This exam should not preclude additional follow-up of suspicious palpable abnormalities. Note on Judi scores and lifetime risk: 1. A Judi score greater than 3% is considered moderate risk. If this is the case, consider specialist referral to assess eligibility for a risk reducing agent. 2. If overall lifetime risk for the development of breast cancer is 20% or higher, the patient may qualify for future screening with alternating mammogram and breast MRI. Electronically signed and approved by: Smita Browning M.D. Radiologist
== END | disposition home or self-care (01) ==
LOC: RADMAMWWP 16:16
PROVIDERS: ATTEND Obstetrics & Gynecology Obstetrics
DX: Z12.31 Encounter for screening mammogram for malignant neoplasm of breast (principal); Z78.0 Asymptomatic menopausal state
CPT/HCPCS: 77067

== ENCOUNTER → 2025-02-07 | Outpatient (CLI) | payer OTHER ==
--- NOTE | 2025-02-07 08:05 | MM ---
Reason for Exam: Screening (asymptomatic). Last mammogram was performed 1 year(s) and 3 month(s) ago. Patient History: Menarche at age 10. First Full-Term at age 28. Left ovary removed at age 57. Right ovary removed at age 57. Hysterectomy at age 57. Postmenopausal. Previous chest radiation therapy. 2012, Benign Core Biopsy on the left side. 2012, Excisional Biopsy on the Right side. Risk Values: Judi 5 year model risk: 2.6%. NCI Lifetime model risk: 13.0%. Prior Study Comparison: 07/03/2021 Bilateral Screening Mammogram, [facility]. 11/06/2022 Bilateral MG screening mammo w CAD, [facility]. 11/26/2023 Bilateral MG screening mammo w CAD, [facility]. Tissue Density: The breasts are heterogeneously dense, which may obscure small masses. Findings: Analyzed By CAD. There is no suspicious group of microcalcifications or new suspicious mass in either breast. Overall Assessment: Benign, BI-RAD 2 Management: Screening Mammogram of both breasts in 1 year. . Patient should continue monthly self-breast exams. A clinical breast exam by your physician is recommended on an annual basis. This exam should not preclude additional follow-up of suspicious palpable abnormalities. Note on Judi scores and lifetime risk: 1. A Judi score greater than 3% is considered moderate risk. If this is the case, consider specialist referral to assess eligibility for a risk reducing agent. 2. If overall lifetime risk for the development of breast cancer is 20% or higher, the patient may qualify for future screening with alternating mammogram and breast MRI. [facility], , 02/07/2025 7:59 AM. Electronically signed and approved by: Juan Diego Friedman M.D. Radiologis
== END | disposition home or self-care (01) ==
LOC: RADMAMWWP 07:07
PROVIDERS: ATTEND Obstetrics & Gynecology Obstetrics
DX: Z12.31 Encounter for screening mammogram for malignant neoplasm of breast (principal); R92.333 Mammographic heterogeneous density, bilateral breasts; Z78.0 Asymptomatic menopausal state
CPT/HCPCS: 77063; 77067

== ENCOUNTER 2025-05-17 03:51 | Emergency (ER) | payer OTHER ==
--- NOTE | 2025-05-17 05:36 | ED ---
Skin/Abscess/FB HPI - General Chief complaint: Skin/Abscess/Foreign Body Stated complaint: Rash Time Seen by Provider: 05/17/25 04:17 Source: patient Mode of arrival: ambulatory Limitations: no limitations - History of Present Illness Initial comments: This patient is 59-year-old woman who is here to have evaluation for hives. Patient does not know with certainty what she was exposed to but developed hives. Patient did have Benadryl and prednisone earlier, had some improvement but symptoms recurring. Patient denies cough, wheezing, dyspnea. No swelling of the lips, tongue, throat. No vomiting or diarrhea. MD complaint: rash -: hour(s) Location: generalized Quality: other (Itching) Consistency: constant Improves with: medication Worsens with: none Context: none Associated symptoms: denies other symptoms Treatments Prior to Arrival: Benadryl, corticosteroid - Related Data Home Medications Medication Instructions Recorded Confirmed Ibuprofen [Motrin Ib] 800 mg PO Q8H PRN 03/19/23 08/11/23 Previous Rx's Medication Instructions Recorded Famotidine [Pepcid] 20 mg PO BID #14 tablet 05/17/25 predniSONE 60 mg PO DAILY #30 tab 05/17/25 Allergies Allergy/AdvReac Type Severity Reaction Status Date / Time codeine AdvReac HEADACHE Verified 05/17/25 03:57 Review of Systems ROS Statement: Those systems with pertinent positive or pertinent negative responses have been documented in the HPI. ROS Other: All systems not noted in ROS Statement are negative. Constitutional: Denies: fever, weakness Eyes: Denies: eye discharge ENT: Denies: throat pain, congestion Respiratory: Denies: cough, dyspnea, wheezes Cardiovascular: Denies: chest pain, palpitations Gastrointestinal: Denies: abdominal pain, vomiting, diarrhea Skin: Reports: as per HPI, rash Neurological: Denies: headache Past Medical History Past Medical History: Hyperlipidemia, Hypertension, Liver Disease Additional Past Medical History / Comment(s): Hep C-treated in 2001 and in remission, past hx of HTN/hyperlipidemia but improved and taken off RXs, ectopic with surgery. History of Any Multi-Drug Resistant Organisms: None Reported Past Surgical History: Uterine Ablation Additional Past Surgical History / Comment(s): L oophorectomy Past Anesthesia/Blood Transfusion Reactions: No Reported Reaction Past Psychological History: No Psychological Hx Reported Smoking Status: Never smoker Past Alcohol Use History: None Reported Past Drug Use History: None Reported - Past Family History Father Family Medical History: Coronary Artery Disease (CAD), Myocardial Infarction (PR) Additional Family Medical History / Comment(s): Father has had 2 PR's. Mother History Unknown: Yes Family Medical History: No Reported History Additional Family Medical History / Comment(s): Patient states that her mother is alive but she does not know any of her medical history. Brother(s) Additional Family Medical History / Comment(s): Patient has one half-brother with no major medical problems. Patient has one half-sister with Angelman syndrome. Patient has one son. General Exam Limitations: no limitations General appearance: alert, in no apparent distress Head exam: Present: atraumatic, normocephalic Eye exam: Present: normal appearance ENT exam: Present: normal oropharynx Neck exam: Present: normal inspection Respiratory exam: Present: normal lung sounds bilaterally. Absent: respiratory distress, wheezes, rales, rhonchi, stridor, accessory muscle use Cardiovascular Exam: Present: regular rate, normal rhythm, normal heart sounds. Absent: systolic murmur, diastolic murmur, rubs, gallop GI/Abdominal exam: Present: soft. Absent: distended, tenderness, guarding Neurological exam: Present: alert Skin exam: Present: warm, dry, intact, urticaria. Absent: vesicles, petechiae Course Vital Signs 05/17/25 05/17/25 03:55 06:40 Temperature 97.8 F 97.3 F L Pulse Rate 65 64 Respiratory 18 16 Rate Blood Pressure 164/75 138/78 O2 Sat by Pulse 96 98 Oximetry Medical Decision Making - Medical Decision Making Was pt. sent in by a medical professional or institution (, PA, BLOOD BANK TECHNOLOGIST, urgent care, hospital, or jail...) When possible be specific @ -[No] Did you speak to anyone other than the patient for history (EMS, parent, family, police, friend...)? What history was obtained from this source @ -[No] Did you review nursing and triage notes (agree or disagree)? Why? @ -[I reviewed and agree with nursing and triage notes] Were old charts reviewed (outside hosp., previous admission, EMS record, old EKG, old radiological studies, urgent care reports/EKG's, jail records)? Report findings @ -[No old charts were reviewed] Differential Diagnosis (chest pain, altered mental status, abdominal pain women, abdominal pain men, vaginal bleeding, weakness, fever, dyspnea, syncope, headache, dizziness, GI bleed, back pain, seizure, CVA, palpatations, mental health, musculoskeletal)? @ -The patient's differential includes urticaria, viral exanthem, dermatitis, this list not all inclusive EKG interpreted by me (3pts min.). @ -[As above] X-rays interpreted by me (1pt min.). @ -[None done] CT interpreted by me (1pt min.). @ -[None done] U/S interpreted by me (1pt. min.). @ -[None done] What testing was considered but not performed or refused? (CT, X-rays, U/S, labs)? Why? @ -[None] What meds were considered but not given or refused? Why? @ -[None] Did you discuss the management of the patient with other professionals (professionals i.e. , PA, BLOOD BANK TECHNOLOGIST, lab, RT, psych nurse, director social, rotary veneer machine operator, teacher, sales and service officer, transplant case manager)? Give summary @ -[No] Was smoking cessation discussed for >3mins.? @ -[No] Was critical care preformed (if so, how long)? @ -[No] Were there social determinants of health that impacted care today? How? (Homelessness, low income, unemployed, alcoholism, drug addiction, transportation, low edu. Level, literacy, decrease access to med. care, detention, rehab)? @ -[No] Was there de-escalation of care discussed even if they declined (Discuss DNR or withdrawal of care, Hospice)? DNR status @ -[No] What co-morbidities impacted this encounter? (DM, HTN, Smoking, COPD, CAD, Cancer, CVA, ARF, Chemo, Hep., AIDS, mental health diagnosis, sleep apnea, morbid obesity)? @ -[None] Was patient admitted / discharged? Hospital course, mention meds given and route, prescriptions, significant lab abnormalities, going to OR and other pertinent info. @ -[Patient is 59-year-old woman with urticaria. Will add an H2 pamella to her course that includes antihistamine and steroid. I also increased the daily steroid dose. Discussed appropriate further care and follow-up as well as return parameters. Undiagnosed new problem with uncertain prognosis? @ -[No] Drug Therapy requiring intensive monitoring for toxicity (Heparin, Nitro, Insulin, Cardizem)? @ -[No] Were any procedures done? @ -[No] Diagnosis/symptom? @ -[Acute urticaria Acute, or Chronic, or Acute on Chronic? @ -[Acute Uncomplicated (without systemic symptoms) or Complicated (systemic symptoms)? @ -[Uncomplicated Side effects of treatment? @ -[No] Exacerbation, Progression, or Severe Exacerbation? @ -[No] Poses a threat to life or bodily function? How? (Chest pain, USA, PR, pneumonia, PE, COPD, DKA, ARF, appy, cholecystitis, CVA, Diverticulitis, Homicidal, Suicidal, threat to staff... and all critical care pts) @ -[No] All treatments are based on ideal body weight as in ED triage Disposition Clinical Impression: Urticaria Disposition: HOME SELF-CARE Condition: Good Instructions (If sedation given, give patient instructions): Urticaria (ED) Prescriptions: Famotidine [Pepcid] 20 mg PO BID #14 tablet predniSONE 60 mg PO DAILY #30 tab Is patient prescribed a controlled substance at d/c from ED?: No Referrals: Vicente Jeffers DO [Primary Care Provider] - 1-2 days
[2025-05-17] MEDS: FAMOTIDINE 20 MG TAB PO STA (05:41)
[2025-05-17 06:42] VITALS: BP 138/78; PULSE 64; RESP 16; TEMP 97.3
== END 2025-05-17 06:40 | disposition home or self-care (01) ==
LOC: EC 03:51
DX: L50.9 Urticaria, unspecified (principal); Z88.5 Allergy status to narcotic agent
CPT/HCPCS: 99282